=== PATIENT | male | born 1980 | race Caucasian/White ===

== ENCOUNTER 2022-09-05 20:18 | Emergency (ER) | payer OTHER, SELFPAY ==
--- NOTE | ~2022-09-05 | XR_ITS ---
EXAMINATION: XR chest 1V portable INDICATION: Shortness of breath and chest pain TECHNIQUE: Portable AP chest at 2046 hours COMPARISON: None available FINDINGS: The lungs are free of acute opacities. No pleural effusion or pneumothorax. The cardiomedia stinal silhouette is normal. The visualized bones and soft tissues are unremarkable. IMPRESSION: 1. No acute cardiopulmonary abnormality. Reviewed, dictated and finalized at location F.
[2022-09-05 20:25] VITALS: BP 109/83; PULSE 105; RESP 16; TEMP 36.9; O2SAT 100
--- NOTE | 2022-09-05 20:25 | ECG_ITS ---
Measurements Intervals [place] Rate: 97 P: 46 [place]: 191 QRS: -6 QRSD: 77 T: 44 QT: 323 QTc: 411 Interpretive Statements SINUS RHYTHM POSSIBLE LEFT ATRIAL ENLARGEMENT [-0.1mV P-WAVE IN V1/V2] INFERIOR MYOCARDIAL INFARCTION , PROBABLY OLD [40+ ms Q WAVE AND/OR ST/T ABNORMALITY IN II/aVF] POSSIBLE ANTERIOR MYOCARDIAL INFARCTION, OLD ABNORMAL ECG COMPARED TO ECG 09/05/2022 20:25:07 SINUS RHYTHM NOW PRESENT Electronically Signed On 09-06-2022 13:31:06 CDT by Vladislav Mobley M.D.
--- NOTE | 2022-09-05 20:38 | ED.GENADULT ---
HPI - General Adult General Chief complaint: Unspecified Stated complaint: jaw tightness, numbness, racing heart Time Seen by Provider: 09/05/22 20:24 History of Present Illness HPI narrative: A 41-year-old male with a significant coronary artery disease presenting with chest pain. Patient was playing softball when at 6:45 a.m. he developed severe chest pressure that radiated to his jaw and left arm. He took 2 nitro which is improved his pain to a 1. He has had pain like this before when he has had a heart attack. No exacerbating factors. Patient is diaphoretic but has not had no vomiting. He says it is not associated with exertion. Patient denies shortness of breath or lower extremity edema. Patient's prime minister is at [place]. He had a stress test 2 weeks ago which was negative. Related Data Allergies Allergy/AdvReac Type Severity Reaction Status Date / Time No Known Allergies Allergy Verified 07/28/12 16:35 [facility] Past Medical History Medical History CAD (coronary artery disease) Diabetes Dyslipidemia Myocardial infarct, old Exam Narrative: APPEARANCE: Looks uncomfortable. Head: atraumatic. EYES: EOMI, NOSE: Atraumatic NECK: Trachea midline RESPIRATORY: No increased rate of breathing clear to auscultation CARDIOVASCULAR: tachycardic, no peripheral edema ABDOMINAL: Non-distended MUSCULOSKELETAl: No obvious deformities NEURO: Alert. Moving 4/4 extremities SKIN:: Warm, dry. Normal color PSYCHIATRIC: Normal affect Course Vital Signs Vital signs: Vital Signs Temperature 98.4 F 09/05/22 20:25 Pulse Rate 105 H 09/05/22 20:25 Respiratory Rate 16 09/05/22 20:25 Blood Pressure 109/83 09/05/22 20:25 Pulse Oximetry 100 09/05/22 20:25 Oxygen Delivery Room Air 09/05/22 20:25 Temperature 98.4 F 09/05/22 20:25 Pulse Rate 85 09/05/22 23:29 Respiratory Rate 12 09/05/22 23:29 Blood Pressure 98/70 L 09/05/22 23:29 Pulse Oximetry 99 09/05/22 23:29 Oxygen Delivery Room Air 09/05/22 20:25 Medical Decision Making [facility] Narrative Medical decision making narrative: -Presentation: 41-year-old male with significant cardiac history presenting to ED with chest pain. 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 -Hx from independent Sources: at bedside -Discussion of Management/Consultants: Ingacio-hospitalist -Independent interpretation of studies: CBC within normal limits. Metabolic panel unremarkable. Troponins negative x2. BNP 36. viral swabs negative. Chest x-ray unremarkable. Independent EKG interpretation: Rhythm [sinus], Rate [107], [place] -[normal], TX -[normal], QRS [narrow], QTC [normal], T waves -[negative for concerning inversions], ST Segments - [Negative for concerning elevations] Final interpretations: [Normal Sinus Rhythm] Dx tests considered but not ordered: None -Procedures: none -Interventions: aspirin 325 mg, nitro -Shared decision making / Disposition: Upon re-evaluation patient is resting comfortably with complete resolution of his chest pain. He does have a history of coronary artery disease and his presentation was very concerning. However his pain is completely resolved. His troponins are negative he has no EKG changes. I actually recommended admission to this hospital, however his prime minister are not here. He is comfortable calling them in the morning and arranging an appointment. He believes he can get quick follow-up. Patient will be discharged with return precautions. -RX Vital Signs Vital Signs: Vital Signs Te
[2022-09-05] MEDS: NITROGLYCERIN SL 0.4 MG TABLET SUBLINGUAL (20:41)
[2022-09-05] MEDS: ASPIRIN 81 MG CHEWABLE TABLET 324 MG PO (20:42)
[2022-09-05 20:49] LABS: Basophils Absolute Auto 0.1 K/mm3 (0.0-0.1); Basophils Percent Auto 0.5 % (0.2-1.2); Eosinophils Absolute Auto 0.1 K/mm3 (0-0.3); Eosinophils Percent Auto 0.6 % (0-4.4); Hemoglobin 16.8 g/dL (14.0-18.0); Immature Granulocyte Absolute 0.03 K/mm3 (0.00-0.031); Immature Granulocyte Percent A 0.3 % (0-0.5); Lymphocytes Absolute Auto 2.25 K/mm3 (0.9-3.2); Lymphocytes Percent Auto 20.9 % (18.3-44.2); Mean Corpuscular HGB Conc 34.3 g/dl (32-36); Mean Corpuscular Hemoglobin 30.9 pg (26-34); Mean Corpuscular Volume 90.1 fl (80-100); Mean Platelet Volume 11.9 fl (7.4-10.4); Monocytes Absolute Auto 0.9 K/mm3 (0.1-0.6); Monocytes Percent Auto 8.2 % (2.6-8.5); Neutrophils Absolute Auto 7.5 K/mm3 (1.3-6.7); Neutrophils Percent Auto 69.5 % (45.5-73.1); Platelet Count Result 222 k/mm3 (150-375); Red Blood Count 5.44 M/mm3 (4.6-6.20); Red Cell Distribution Width 12.9 % (11.5-14.5); White Blood Count 10.8 K/mm3 (4.5-10.0)
[2022-09-05 20:51] LABS: Glucose Point of Care 303 mg/dl (65-105)
[2022-09-05 21:00] LABS: Prothrombin Time 13.7 Seconds (11.1-14.7)
[2022-09-05 21:01] LABS: Partial Thromboplastin Time 28.3 SECONDS (22.3-36.8)
--- NOTE | 2022-09-05 21:05 | ECG_ITS ---
Measurements Intervals [place] Rate: 107 P: 33 [place]: 152 QRS: -15 QRSD: 86 T: 47 QT: 329 QTc: 439 Interpretive Statements SINUS TACHYCARDIA POSSIBLE LEFT ATRIAL ENLARGEMENT [-0.1mV P-WAVE IN V1/V2] POSSIBLE ANTERIOR MYOCARDIAL INFARCTION , OF INDETERMINATE AGE [30 ms Q WAVE IN V3/V4, OR R < 0.2 mV IN V4] ABNORMAL ECG NO PREVIOUS ECG AVAILABLE FOR COMPARISON Electronically Signed On 09-06-2022 13:30:42 CDT by Vladislav Mobley M.D.
[2022-09-05 21:07] LABS: Alanine Aminotransferase 37 U/L (6-50); Alkaline Phosphatase 68 U/L (38-126); Anion Gap 15 mmol/L (8-16); Aspartate Amino Transferase 30 U/L (17-59); Bilirubin,Total 0.7 mg/dL (0.2-1.3); Blood Urea Nitrogen 30 mg/dL (9-20); Calcium 9.3 mg/dL (8.4-10.2); Carbon Dioxide 22 mmol/L (22-30); Chloride 99 mmol/L (98-107); Estimated CRCL calculation 100 ml/min; Estimated Glomerular Filt Rate > 60; Glucose 301 mg/dL (65-110); Lipase 125 U/L (23-300); Magnesium 1.9 mg/dL (1.6-2.3); Potassium 3.8 mmol/L (3.4-5.0); Sodium 136 mmol/L (137-145)
[2022-09-05 21:18] VITALS: BP 98/65; PULSE 95; RESP 17; O2SAT 98
[2022-09-05 21:25] LABS: Influenza A QL RT-PCR Negative (Negative); Influenza B QL RT-PCR Negative (Negative); RSV RNA, RT-PCR Negative (Negative); SARS-CoV-2 RNA PCR Negative (Negative)
[2022-09-05 21:26] LABS: NT Pro B Type Natriuretic Pept 36 pg/mL (19.9-100); Troponin I < 0.012 ng/mL (0.000-0.034)
[2022-09-05 21:56] VITALS: BP 95/59; PULSE 88; RESP 21; O2SAT 97
[2022-09-05 22:53] VITALS: BP 109/73
[2022-09-05 23:29] VITALS: BP 98/70; PULSE 85; RESP 12; O2SAT 99
[2022-09-05 23:51] LABS: Troponin I < 0.012 ng/mL (0.000-0.034)
[2022-09-06 00:45] VITALS: BP 100/69; PULSE 83; RESP 14; O2SAT 98
== END 2022-09-06 00:47 | disposition home or self-care (01) ==
PROVIDERS: Emergency Provider Emergency Medicine
DX: I25.10 Atherosclerotic heart disease of native coronary artery without angina pectoris (principal); Z20.822 Contact with and (suspected) exposure to COVID-19; E11.9 Type 2 diabetes mellitus without complications; E78.5 Hyperlipidemia, unspecified; I25.2 Old myocardial infarction; Z95.5 Presence of coronary angioplasty implant and graft; R94.31 Abnormal electrocardiogram [ECG] [EKG]; R00.0 Tachycardia, unspecified
CPT/HCPCS: 36415; 71045; 80053; 82948; 83690; 83735; 83880; 84484; 85025; 85610; 85730; 87637; 93005; 99284; A9270

== ENCOUNTER 2023-11-10 15:58 | Emergency (ER) | payer OTHER, SELFPAY ==
[2023-11-10 16:04] VITALS: BP 150/89; PULSE 82; RESP 20; TEMP 36.2; O2SAT 100
--- NOTE | 2023-11-10 19:40 | PC.NURSE ---
Pt called out twice at 1919. No answer
== END 2023-11-10 20:22 | disposition left against medical advice (07) ==
DX: M54.50 Low back pain, unspecified (principal)
CPT/HCPCS: 99199

== ENCOUNTER 2023-11-11 09:12 | Emergency (ER) | payer OTHER, SELFPAY ==
--- NOTE | ~2023-11-11 | CT_ITS ---
EXAMINATION: CTA chest abdomen pelvis DATE: 11/11/2023 11:06 INDICATION: Back pain radiating to the groin. Constipation. TECHNIQUE: Computed tomographic angiography (CTA) of the chest, abdomen, and pelvis was performed wit h 100 mL Omnipaque-350 intravenous contrast. Automated exposure control and iterative reconstruction technique were employed. The dose-length product was 1610.42 mGy-cm. Maximum intensity projection 3D- reconstructions of the aorta and other arteries were constructed by the technologist on a separate wo rkstation. COMPARISON: None. FINDINGS: CHEST CTA: The lungs demonstrate minimal atelectasis. No pleural effusion. The heart size is normal. There is a trace pericardial effusion. There are coronary artery calcifications. Thoracic aorta is normal. There is mild thoracic spondylosis. ABDOMEN AND PELVIS CTA: The liver, gallbladder, spleen, pancreas, adrenal glands, and kidneys are normal. There are no dilate d loops of bowel. The appendix is normal. There are no pathologically enlarged lymph nodes. There is no free intraperitoneal fluid. The aorta is normal. There is no significant stenosis of celiac axis, superior mesenteric artery, the renal arteries, or inferior mesenteric artery. There is mild lumbar s pondylosis.. IMPRESSION: 1. Normal aorta. Reviewed, dictated and finalized at location E. IMPRESSION: 1. Normal aorta.
--- NOTE | ~2023-11-11 | XR_ITS ---
EXAMINATION: XR chest 1V DATE: 11/11/2023 10:49 INDICATION: Mid to low back pain rating to the groin. TECHNIQUE: A single frontal view of the chest was obtained. COMPARISON: Chest single view 09/05/2022 FINDINGS: There is no pneumonia, pleural effusion, or pneumothorax. The heart size is normal. IMPRESSION: 1. No acute cardiopulmonary disease. Reviewed, dictated and finalized at location E.
[2023-11-11 09:47] VITALS: BP 90/51; PULSE 88; RESP 18; TEMP 36.9; O2SAT 100
--- NOTE | 2023-11-11 10:31 | ECG_ITS ---
Test Date: 2023-11-11 11:34:00 Measurements Intervals [place] Rate: 86 P: 50 [place]: 170 QRS: 15 QRSD: 91 T: 49 QT: 349 QTc: 419 Interpretive Statements SINUS RHYTHM LOW QRS VOLTAGE IN EXTREMITY LEADS [QRS DEFLECTION < 0.5 mV IN LIMB LEADS] No previous ECG available for comparison Electronically Signed On 11-11-2023 13:51:09 CDT by Jeanmarie Cole M.D.
--- NOTE | 2023-11-11 10:34 | ED.BACK ---
HPI - Back Pain/Injury General Chief Complaint: Back Pain/Injury Stated Complaint: lower back pain goes into groin, legs/feet Time Seen by Provider: 11/11/23 10:01 History of Present Illness HPI Narrative: This is a 42-year-old male with a past medical history significant for coronary artery disease status post multiple stents. Today he presents to the ED for evaluation of sudden onset back pain radiating towards his left side and left groin. 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 Has never had anything like this happen to him in the past. Pain has been persistent and worsening since Sunday last week when this started. Denies any chest discomfort difficulty in breathing. No nausea, vomiting, headache, vision changes. No weakness, fatigue. No neuropathy. No saddle anesthesias. He states he has had decreased ability to use the restroom with some constipation but denies any urinary issues. Able to ambulate denies any footdrop, weakness or any other neurological complaints at this time. No history of aortic dissection in this health for his family members, no history of other trauma. Related Data Allergies Allergy/AdvReac Type Severity Reaction Status Date / Time No Known Allergies Allergy Verified 11/11/23 10:08 Review of Systems Review of Systems: As reviewed above in the [facility] Past Medical History Medical History CAD (coronary artery disease) Diabetes Dyslipidemia Myocardial infarct, old Exam Narrative: GENERAL: [Well-appearing, well-nourished, and in no acute distress.] HEAD: [Normocephalic, atraumatic.] EYES: [PERRLA and EOMI.] ENT: Nares clear, no rhinorrhea or epistaxis. Mucous membranes moist. NECK: Supple. CHEST: [Clear to auscultation. No respiratory distress.] HEART: [Regular rate and rhythm]. No murmur heard. [Normal peripheral pulses.] ABDOMEN: [Soft, nondistended], tenderness in the midepigastrium without any pulsatile masses, [No rigidity or guarding]. Testicular exam revealed symmetric testicles without any pain, no tenderness in the inguinal region, no hernia masses felt. EXTREMITIES: Normal range of motion. [No edema.] Focal back pain in the lumbar central paraspinal area SKIN: Warm, dry, no rash. NEURO: [No focal deficits]. Alert and oriented [x3.] No saddle anesthesias. PSYCH: [Normal mood and affect.] Course Vital Signs Vital signs: Vital Signs Temperature 36.9 C 11/11/23 09:47 Pulse Rate 88 11/11/23 09:47 Respiratory Rate 18 11/11/23 09:47 Blood Pressure 90/51 L 11/11/23 09:47 Pulse Oximetry 100 11/11/23 09:47 Oxygen Delivery Room Air 11/11/23 09:47 Temperature 36.9 C 11/11/23 09:47 Pulse Rate 93 11/11/23 13:12 Respiratory Rate 16 11/11/23 13:12 Blood Pressure 118/92 H 11/11/23 13:12 Pulse Oximetry 99 11/11/23 13:12 Oxygen Delivery Room Air 11/11/23 09:47 MDM - Back Pain/Injury MDM Narrative Medical decision making narrative: This is a 42-year-old male with significant past medical history including coronary artery disease with stents, dyslipidemia. He presents today with sudden onset back pain, abdominal pain and radiating pain to his left groin. He was not doing anything particularly strenuous and is at work when he notices sudden-onset pain that has been worsening since Sunday. He has tried Tylenol, laxatives, [id number] treatments without any relief of his symptoms. His examination is concerning with a mid epigastrium tenderness that does feel connected to his back according to himself. He has no neuro deficits and is able to ambulate. He has some paraspinal muscle tenderness is back. No inguinal masses, no hernias palpated, no overlying skin changes
[2023-11-11 11:03] LABS: Estimated CRCL calculation 118 ml/min; Estimated Glomerular Filt Rate > 60
[2023-11-11] MEDS: MORPHINE SULFATE (*CRX) 4 MG/ML INJ 8 MG IV PUSH (11:10)
[2023-11-11] MEDS: LACTATED RINGERS 1,000 ML 999 ML IV CONT (11:11)
[2023-11-11] MEDS: ONDANSETRON INJ 4 MG/2 ML VIAL IV PUSH (11:11)
[2023-11-11 11:15] VITALS: BP 109/82; PULSE 90; RESP 18; O2SAT 100
[2023-11-11 11:21] LABS: Basophils Percent Auto 0.5 % (0.2-1.2); Eosinophils Absolute Auto 0.1 K/mm3 (0-0.3); Eosinophils Percent Auto 0.8 % (0-4.4); Hematocrit 45.2 % (42.0-52.0); Hemoglobin 15.7 g/dL (14.0-18.0); Immature Granulocyte Absolute 0.02 K/mm3 (0.00-0.031); Immature Granulocyte Percent A 0.2 % (0-0.5); Lymphocytes Absolute Auto 1.32 K/mm3 (0.9-3.2); Lymphocytes Percent Auto 15.7 % (18.3-44.2); Mean Corpuscular HGB Conc 34.7 g/dl (32-36); Mean Corpuscular Hemoglobin 32.1 pg (26-34); Mean Corpuscular Volume 92.4 fl (80-100); Mean Platelet Volume 12.4 fl (7.4-10.4); Monocytes Absolute Auto 0.6 K/mm3 (0.1-0.6); Monocytes Percent Auto 6.8 % (2.6-8.5); Neutrophils Absolute Auto 6.4 K/mm3 (1.3-6.7); Platelet Count Result 169 k/mm3 (150-375); Red Blood Count 4.89 M/mm3 (4.6-6.20); Red Cell Distribution Width 12.6 % (11.5-14.5); White Blood Count 8.4 K/mm3 (4.5-10.0)
[2023-11-11 11:23] LABS: Add Urine Microscopic? NO; Appearance Urine Clear (Clear); Bilirubin Urine Negative (Negative); Blood Urine Negative (Negative); Color Urine Yellow (Yellow); Glucose Urine UA 3+ mg/dL (Negative); Ketones Urine 2+ mg/dL (Negative); Leukocyte Esterase Ur Negative LEU/UL (Negative); Nitrate Urine Negative (Negative); Protein Urine Negative (Negative); Specific Grav Ur 1.036 (1.001-1.035); Urobilinogen Urine 0.2 mg/dL (<2.0)
[2023-11-11 11:32] LABS: Partial Thromboplastin Time 28.1 Seconds (22.3-36.8)
[2023-11-11 11:33] LABS: INR 1.1
[2023-11-11 11:35] LABS: Alanine Aminotransferase 21 U/L (6-50); Albumin Level 4.1 g/dL (3.5-5.1); Alkaline Phosphatase 73 U/L (38-126); Anion Gap 13 mmol/L (4-12); Aspartate Amino Transferase 21 U/L (17-59); Bilirubin,Total 0.7 mg/dL (0.2-1.3); Blood Urea Nitrogen 26 mg/dL (9-20); Calcium 8.7 mg/dL (8.4-10.2); Carbon Dioxide 24 mmol/L (22-30); Chloride 97 mmol/L (98-107); Estimated CRCL calculation 171 ml/min; Estimated Glomerular Filt Rate > 60; Glucose 295 mg/dL (65-110); Lipase 96 U/L (23-300); Potassium 4.3 mmol/L (3.4-5.0); Sodium 134 mmol/L (137-145)
[2023-11-11 11:36] LABS: D Dimer < 0.27 ug/mL (<0.48)
[2023-11-11 11:46] LABS: Troponin I < 0.012 ng/mL (0.000-0.034)
[2023-11-11 13:12] VITALS: BP 118/92; PULSE 93; RESP 16; O2SAT 99
[2023-11-11] MEDS: LIDOCAINE 5% PATCH 1 PATCH TRANSDERM (13:50)
[2023-11-11] MEDS: methocarbamoL 750 MG TABLET PO (13:51)
[2023-11-11] MEDS: dexAMETHasone SOD PHOS INJ 10 MG/ML 1 ML VIAL IV PUSH (13:51)
[2023-11-11 14:05] VITALS: BP 124/80; PULSE 89; RESP 18; TEMP 37.1; O2SAT 98
== END 2023-11-11 14:07 | disposition home or self-care (01) ==
PROVIDERS: Emergency Provider Student in an Organized Health Care Education/Training Program
DX: S39.012A Strain of muscle, fascia and tendon of lower back, initial encounter (principal); M51.26 Other intervertebral disc displacement, lumbar region; E86.0 Dehydration; I25.10 Atherosclerotic heart disease of native coronary artery without angina pectoris; I25.2 Old myocardial infarction; E11.9 Type 2 diabetes mellitus without complications; E78.5 Hyperlipidemia, unspecified; Z95.5 Presence of coronary angioplasty implant and graft; X58.XXXA Exposure to other specified factors, initial encounter
CPT/HCPCS: 36415; 71045; 71275; 74174; 80053; 81003; 83690; 84484; 85025; 85380; 85610; 85730; 93005; 96361; 96374; 96375; 99284; A9270; J1100; J2270; J2405; J7120; Q9967

== ENCOUNTER 2024-08-04 08:52 | Emergency (ER) | payer OTHER, SELFPAY ==
[2024-08-04] VITALS (15 sets, daily range): BP systolic 112–142; BP diastolic 79–94; PULSE 79–104; RESP 9–18; TEMP 36.7; O2SAT 96–100
--- NOTE | ~2024-08-04 | XR_ITS ---
Clinical Indication: Chest pain PA and lateral views of the chest: Comparison: 11/11/2023 Findings: The lungs are clear, without evidence of focal consolidation or pleural effusion. Cardiome diastinal silhouette is within normal limits. Bones and soft tissues are unremarkable. Impression: Normal chest. Reviewed, dictated and finalized at location . Impression: Normal chest.
--- NOTE | 2024-08-04 08:53 | ECG_ITS ---
Test Date: 2024-08-04 08:59:50 Measurements Intervals [place] Rate: 84 P: 33 [place]: 171 QRS: 0 QRSD: 82 T: 37 QT: 326 QTc: 385 Interpretive Statements SINUS RHYTHM LOW-VOLTAGE OTHERWISE NORMAL ELECTROCARDIOGRAM Compared to ECG 11/11/2023 11:34:00 No significant changes Electronically Signed On 08-04-2024 15:39:21 CDT by Conor Barbour M.D.
[2024-08-04 09:05] LABS: Glucose Point of Care 269 mg/dl (65-105)
[2024-08-04] MEDS: ASPIRIN 81 MG CHEWABLE TABLET 324 MG PO (09:13)
--- OUTSIDE RECORDS SUMMARY | 2024-08-04 09:17 | XMS_ITS | Encounter Summary ---
Author Organization [facility] - [facility] Address [address] [place] [id number] Care Team Providers Care Writing Manager Name Role Phone Liss Randle STRATEGIC PARTNER DEVELOPMENT MANAGER Primary Care Provider + Encounter Details Date Type Department Care Team (Late st Contact Info) Description 05/05/2024 [place] Message Enc [facility] Family [facility] - [place] [address] [place] [address] [facility] Provider test results Social History Tobacco Use Types Packs/Day Years Used Date Smoking Tobacco: Never Passive Smoke Exposure: Never Smokeless Tobacco: Never Alcohol Use Standard Drinks/Week Comments No 0 (1 standard drink = 0.6 oz pur e alcohol) AUDIT-C Answer Date Recorded Frequency of Alcohol Consumption Never 07/25/2018 Average Number of Drinks Not on file 019 Frequency of Binge Drinking Not on file 07/02 PHQ-2 Answer Date Recorded Patient Health Questionnaire-2 Score 0 04/11/2024 Sex and Gender Information Value Date Recorded Sex Assigned at Not on file Legal Sex Male 7:35 PM CDT Gender Identity Not on file Sexual Orientation Not on file documented as of this encounter Plan of Treatment Not on file documented as of this encounter Visit Diagnoses Not on filedocumented in this encounter Additional Health Concerns Assessment Noted Time PHQ-9 Depression Total Score: 1 04/11/19 25 9:38 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
--- OUTSIDE RECORDS SUMMARY | 2024-08-04 09:17 | XMS_ITS | CONTINUITY OF CARE DOCUMENT ---
Author Name sheron fabydevante Address Unknown Organization [facility] Address [address] [place] [address] Phone [phone] Care Team Providers Care Termite Treater Helper Name Role Phone Subha VIVEROS, Patrick Moran Unavailable [phone] ZA HAAS APN Unavailable [phone] WALDO CARLSON ZA Unavailable [phone] PROBLEMS Condition Status Date Provider Notes JOSIANE active Patrick Mascorro MD SLEEP APNEA active Patrick Mascorro MD Family History of Hypertension: active Natividad Mascorro MD Family History of Hypertension: active Natividad Mascorro MD Cardiovascular screening active Patrick valero MD DM - type 2 active Patrick Mascorro MD Dyslipidemia mixed active Patrick Mascorro MD AMI anterior wall active Patrick Garza Hypercholesterolemia active Patrick de anda MD HTN essential active Patrick Mascorro MD Chest pain atypical active Patrick Mascorro MD Palpitations active Patrick Mascorro MD ENCOUNTERS Date Type Provider Location Encounter Diag nosis - In-person encounter Office Visit Patrick Mascorro MD [place] [facility] - In-person encounter Office Visit Patrick Mascorro MD [facility] - In-person encounter Office Visit Patrick Mascorro MD [facility] - In-person encounter Office Visit Patrick Mascorro MD [facility] - In-person encounter Office Visit Patrick Mascorro MD [facility] - In-person encounter Office Visit Patrick Mascorro MD [facility] - In-person encounter Office Visit Patrick Mascorro MD [facility] - In-person encounter Office Visit Patrick Mascorro MD [facility] Chest pain atypicalPalpitations - In-person encounter Office Visit Patrick Mascorro MD [place] [facility] Family History of Hypertension:Family History of Hypertension:Cardiovascular screeningDM - type 2Dyslipidemia mixedAMI anterior wallHypercholesterolemiaHTN essential VITAL SIGNS Date Observation Value Provider Body Mass Index (Ratio) 33.90 kg/m2 Natividad Mascorro MD blood pressure, diastolic 84 mm[Hg] Aziza Ramirez blood pressure, systolic 121 mm[Hg] Lily Ramirez oxygen saturation, oximetry 98 % Maren Ramirez pulse rate 73 /min Maren Ramirez respiratory rate E&M 12 /min Maren Ramirez weight E&M 250 [lb_av] Maren Ramirez height E&M 72 [in_i] Maren Ramirez blood pressure, cuff size regular Aziza Ramirez Body Mass Index (Ratio) 36.89 kg/m2 Natividad Mascorro MD blood pressure, cuff size large Ke rri Rima blood pressure, diastolic 80 mm[Hg] Ke rri Rima blood pressure, systolic 150 mm[Hg] Caesar Abarca respiratory rate E&M 12 /min Brittany cano oxygen saturation, oximetry 99 % Brittany Gibbonser pulse rate 82 /min Brittany Adams lder weight E&M 272 [lb_av] Brittany Adams lder height E&M 72 [in_i] Brittany Adams er Body Mass Index (Ratio) 362.08 kg/m2 Natividad Mascorro MD blood pressure, diastolic 83 mm[Hg] Kim arriazaLogmendoza blood pressure, systolic 123 mm[Hg] Sulma Wolffmendoza weight E&M 2670 [lb_av] Ashlee Garcia pulse rate 82 /min Ashlee Garcia respiratory rate E&M 18 /min Ashlee Garcia oxygen saturation, oximetry 97 % Ashlee Garcia blood pressure, diastolic 83 mm[Hg] Martell Garcia blood pressure, systolic 123 mm[Hg] She samra Garcia blood pressure, cuff size regular naman Garcia height E&M 72 [in_i] Ashlee Garcia weight E&M 251 [lb_av] Zoie Monroy in Body Mass Index (Ratio) 34.15 kg/m2 Natividad Mascorro MD blood pressure, diastolic -1 mm[Hg] Kim arriazaLogmendoza blood pressure, systolic 116 mm[Hg] Sulma Wolffogmendoza blood pressure, diastolic 79 mm[Hg] St francia Hoffmann blood pressure, systolic 116 mm[Hg] Alcon Hoffmann oxygen saturation, oximetry 99 % Mirna Hoffmann pulse rate 84 /min Mirna Hoffmann weight E&M 251.8 [lb_av] Mirna Hoffmann respiratory rate E&M 18 /min Mirna zuleta height E&M 72 [in_i] Mirna Hoffmann Body Mass Index (Ratio) 34.31 kg/m2 Natividad Mascorro MD blood pressure, diastolic 75 mm[Hg] Li nkLogic blood pressure, systolic 127 mm[Hg] Sulma kLogic blood pressure, diastolic 75 mm[Hg] Ca therine Kenan blood pressure, systolic 127 mm[Hg] Cat herine Kenan oxygen saturation, oximetry 98 % Isabel [place] respiratory rate E&M 16 /min Catheri ne [place] pulse rate 80 /min Isabel Kenan weight E&M 253 [lb_av] Isabel Kenan blood pressure, cuff size regular Ca therine Kenan height E&M 72 [in_i] Isabel [place] weight E&M 151 [lb_av] Aniceto gross Body Mass Index (Ratio) 35.80 kg/m2 Natividad Mascorro MD blood pressure, cuff size large Ke rri Gruenenfeldclementina blood pressure, diastolic 70 mm[Hg] Ke rri Gruenenfelder blood pressure, systolic 120 mm[Hg] Caesar ri Rima oxygen saturation, oximetry 98 % Brittany Abarca respiratory rate E&M 14 /min Brittany cano pulse rate 76 /min Brittany Angie lder weight E&M 264 [lb_av] Brittany Angie lder height E&M 72 [in_i] Brittany Gruenenfe lder Body Mass Index (Ratio) 35.12 kg/m2 Stephanie Arzate blood pressure, cuff size large Janie terrazas Falk blood pressure, diastolic 76 mm[Hg] Janie terrazas Falk blood pressure, systolic 130 mm[Hg] Ananda rosado Falk oxygen saturation, oximetry 99 % Autumn Dileep respiratory rate E&M 96 /min Loni Falk pulse rate 96 /min Autumn garza weight E&M 259 [lb_av] Autumn garza height E&M 72 [in_i] Autumn garza Body Mass Index (Ratio) 34.99 kg/m2 Natividad Mascorro MD weight E&M 258 [lb_av] Mary Grant castillo respiratory rate E&M 16 /min Mary Ascencio oxygen saturation, oximetry 97 % Maryneetu Ascencio pulse rate 97 /min Mary Grant castillo blood pressure, cuff size regular Cy tyshawn Sonu blood pressure, diastolic 70 mm[Hg] Cy tyshawn Sonu blood pressure, systolic 138 mm[Hg] Antonieta nydia Sonu height E&M 72 [in_i] Mary Grant castillo Body Mass Index (Ratio) 35.80 kg/m2 Natividad Mascorro MD pulse rate 83 /min Jessicalauren Serra blood pressure, cuff size regular Kr isty Ponce blood pressure, diastolic 80 mm[Hg] Kr isty Ponce blood pressure, systolic 144 mm[Hg] Kri sty Ponce oxygen saturation, oximetry 98 % Jessica Sullivan respiratory rate E&M 18 /min Jessica Sullivan blood pressure, resting Yes Osmel ty Sullivan height E&M 72 [in_i] Jessica Hansenby weight E&M 264 [lb_av] Jessica Hansenby ALLERGIES No Known Drug Allergies HISTORY OF MEDICATION USE Medication Status Instructions Dates Provider Indications Com ments nitroglycerin 0.4 mg tablet, sublingual active PLACE 1 TABLET UNDER THE TONGUE FOR CHEST PAIN. REPEAT EVERY 5 MINS IF STILL HAVING CHEST PAIN. MAX 3 TABLETS PER EPISODE. IF NO RELIEF GO TO ER. Patrick Mascorro MD atorvastatin 40 mg tablet active Take 1 tablet by mouth once a day Patrick Mascorro MD clopidogrel 75 mg tablet active Take 1 tablet by mouth once a day Patrick Mascorro MD isosorbide mononitrate 30 mg tablet extended release 24 hr active Take 1 tablet by mouth once a day TAKE 1 TABLET BY MOUTH EVERY DAY Patrick Mascorro MD lisinopril 10 mg tablet active Take 1 tablet by mouth once a day Patrick Mascorro MD fluoxetine 20 mg capsule active Take 1 capsule by mouth once daily Krishna Ibarra NP Farxiga 10 mg tablet active Take 1 tablet by mouth once a day Patrick Mascorro MD Mounjaro 2.5 mg/0.5 mL pen injector active Inject 1 pen injector subcutaneously once a week for 4 weeks, if tolerated will increase dosage. Brittany Abarca nitroglycerin 0.4 mg tablet, sublingual completed PLACE 1 TABLET UNDER TONGUE FOR CHEST PAIN NEEDED. MAY REPEAT EVERY 5 MINUTES IF STILL HAVING CHEST PAIN- TO MAX OF 3 TABLETS PER EPISODE.IF NO RELIEF AFTER 3RD DOSE, GO TO ER - Krishna Ibarra NP lisinopril 10 mg tablet completed Take 1 tablet by mouth once a day - Krishna Ibarra NP isosorbide mononitrate 30 mg tablet extended release 24 hr completed TAKE 1 TABLET BY MOUTH EVERY DAY - Brittany Abarca isosorbide mononitrate 30 mg tablet extended release 24 hr completed TAKE 1 TABLET BY MOUTH DAILY - Patrick Mascorro MD nitroglycerin 0.4 mg tablet, sublingual completed PLACE 1 TABLET UNDER TONGUE FOR CHEST PAIN NEEDED. MAY REPEAT EVERY 5 MINUTES IF STILL HAVING CHEST PAIN- TO MAX OF 3 TABLETS PER EPISODE.IF NO RELIEF AFTER 3RD DOSE, GO TO ER - Christy Lockhart nitroglycerin 0.4 mg tablet, sublingual completed 1 tablet under tongue as directed as needed 1 tablet under tongue for chest pain. May repeat every 5 minutes if still having chest pain- to max of 3 tablets per episode.If no relief after 3rd dose, go to ER - Patrick Mascorro MD Availinke 14 Day Sensor kit active 1 UNITS BY DOES NOT APPLY ROUTE EVERY 14 (FOURTEEN) DAYS. Jessica Serra Rybelsus 7 mg tablet completed TAKE 1 TABLET BY MOUTH EVERY DAY - Krishna Ibarra NP Xigduo XR 10-1,000 mg tablet, IR - ER, biphasic 24hr completed TAKE 1 TABLET BY MOUTH EVERY DAY - Krishna Ibarra NP fluoxetine 20 mg capsule completed TAKE 1 CAPSULE BY MOUTH EVERY DAY - Krishna Ibarra NP carvedilol 3.125 mg tablet active Take 1 tablet by mouth twice a day Patrick Mascorro MD pioglitazone 30 mg tablet completed TAKE 1 TABLET BY MOUTH EVERY DAY - Krishna Ibarra NP lisinopril 10 mg tablet completed TAKE 1 TABLET BY MOUTH EVERY DAY - Brittany Abarca clopidogrel 75 mg tablet completed TAKE 1 TABLET BY MOUTH EVERY DAY - Brittany Abarca atorvastatin 40 mg tablet completed TAKE 1 TABLET BY MOUTH EVERY DAY - Brittany Abarca SOCIAL HISTORY Date Observation Value Provider personal history of marijuana use no Patrick Mascorro MD drug use no Patrick de anda MD alcohol use no Patrick de anda MD smoking status Never smoker Patrick crump MD personal history of marijuana use no Krishna Ibarra EARTH SCIENCE PROFESSOR drug use no Krishna Steeleri EARTH SCIENCE PROFESSOR alcohol use no Krishna Steeleri EARTH SCIENCE PROFESSOR smoking status Never smoker Krishna Lemus i EARTH SCIENCE PROFESSOR smoking status Never smoker Ashlee Garcia social history E&M S moking History: Avila nicholson has never smoked. Patrick Mascorro MD social history reviewed E&M revi ewed - no changes required Patrick Mascorro MD smoking status Never smoker Mirna Hoffmann social history E&M S moking History: Avila nicholson has never smoked. Patrick Mascorro MD social history reviewed E&M revi ewed - no changes required Patrick Mascorro MD smoking status Never smoker Isabel alarcon social history E&M S moking History: Avila nicholson has never smoked. Patrick Mascorro MD social history reviewed E&M revi ewed - no changes required Patrick Mascorro MD smoking status Never smoker Brittany chavez social history E&M S moking History: Avila nicholson has never smoked. Patrick Mascorro MD social history reviewed E&M revi ewed - no changes required Patrick Mascorro MD smoking status Never smoker Autumn Siegel and social history E&M S moking History: Avila nicholson has never smoked. Patrick Mascorro MD social history reviewed E&M revi ewed - no changes required Patrick Mascorro MD smoking status Never smoker Mary morton number of grandchildren Patrick Mascorro MD social history E&M S moking History: Avila nicholson has never smoked. Patrick Mascorro MD social history reviewed E&M revi ewed - no changes required Patrick Mascorro MD smoking status Never smoker Jessica Serra FUNCTIONAL STATUS Date Observation Value Provider HRA, CV Assess/Plan, Angina (inactive) Management Plan continue current therapy Sandrahollie Chaudhariorlando FERRARA HRA, CV Assess/Plan, Angina (inactive) Management Plan continue current therapy Patrick Mascorro MD HRA, CV Assess/Plan, Angina (inactive) Management Plan continue current therapy, antianginal therapy Patrick Mascorro MD HRA, CV Assess/Plan, Angina (inactive) Management Plan continue current therapy Patrick Mascorro MD HRA, CV Assess/Plan, Angina (inactive) Management Plan continue current therapy Ptarick Mascorro MD FAMILY HISTORY Family Member Condition Uncle Family History of Hy pertension: Paternal Grandfather Family History of C ongestive Heart Failure: Paternal Grandfather Family History of D iabetes: Maternal Grandmother Family History of H ypertension: Maternal Grandmother Family History of D iabetes: INSURANCE PROVIDERS Payer name Policy type / Coverage type [place] red libertarian [employer] [facility] [id number] Other [id number] ADVANCE DIRECTIVES Name Date DISCUSSED - NO DECISION MADE TREATMENT PLAN Date Name Performer [id number],CS colette and Interpretation 1 . Normal exercise capacity 2 . Normal hemodynamic response to exercise 3 . No diagnostic ST or T changes 4 . No significant arrhythmias 5. There is no evidence for exercise-induced myocardial ischemia routine stress test was supervised and interpreted by Dr. Berg . ...................................................... ............Guera Berg MD August 18, 2022 10:37 AM CONCLUSIONS: 1 . Normal left ventricular systolic function. Normal left ventricular size. Normal left ventricular wall thickness. E/E': 10.0 Left v entricular ejection fraction is measured at 60 %. 2 . Normal right ventricular size. 3 . No significant valvular abnormalities. E lectronically Signed By: Yuliana Mascorro MD, FACC 2 023-05-23 08:33:49 SOLUTION DIRECTOR C C: Patrick Mascorro MD, FACC E lectronically signed by Patrick Mascorro MD on 05/24/2022 at 1:24 PM Patrick Mascorro MD [id number],C, H is updated medication list for this problem includes: Atorvastatin 40 Mg Tablet (Atorvastatin) ..... Take 1 tablet by mouth every day Patrick Mascorro MD [id number],C, P TCA stenting with a cutting balloon atherectomy of the LAD utilizing t he placement of a 3 mm x 38 mm Nain drug-eluting stent. 5 . Intravascular ultrasound of the ramus intermedius followed by PTCA s tenting of the proximal segment with a cutting balloon atherectomy w ith implantation of 3 x 18 Biotron[place] Orsiro drug-eluting stent and d irect stenting of the distal 90% lesion with a 2.5 x 12 [place] d rug-eluting stent. i ncreased coreg to 6.25mg bid December 20, 2022 n o new CP or SOB S ummary and Interpretation 1 . Normal exercise capacity 2 . Normal hemodynamic response to exercise 3 . No diagnostic ST or T changes 4 . No significant arrhythmias 5 . There is no evidence for exercise-induced myocardial ischemia routine stress test was supervised and interpreted by Dr. Berg . ...................................................... ............Guera Berg MD August 18, 2022 10:37 AM Patrick Mascorro MD [id number],C,m oderate JOSIANE on sleep test, needs CPAP in preference to autopap since he had prior CAD/NH Patrick Mascorro MD [id number],C,s table on BP meds H is updated medication list for this problem includes: Carvedilol 3.125 Mg Tablet (Carvedilol) ..... Take 1 tablet by mouth twice a day Lisinopril 10 Mg Tablet (Lisinopril) ..... Take 1 tablet by mouth every day Lisinopril 10 Mg Tablet (Lisinopril) ..... Take 1 tablet by mouth every day Patrick Mascorro MD [id number],C,No new palpit ations. Patrick Mascorro MD [id number],C, H is updated medication list for this problem includes: Atorvastatin 40 Mg Tablet (Atorvastatin) ..... Take 1 tablet by mouth every day Patrick Mascorro MD [id number],C, H AD PALIPS WITH CP TOOK SLNTG W ILL GIV IMDUR AND GET TLE MONOTOR February 18, 2021 f eels well hr better on coreg 6.25mg bid n o new angina will continue wiht medrx Patrick Mascorro MD [id number],C,E cho from 05/25 C ONCLUSIONS: 1 . Normal left ventricular systolic function. Normal left ventricular size. Normal left ventricular wall thickness. E/E': 10.0 Left v entricular ejection fraction is measured at 60 %. 2 . Normal right ventricular size. 3 . No significant valvular abnormalities. Stress test from 08/17/22 T ota Exercise Duration: 10:01 A ctivity Status: Active M ET's: 10.7 F AI Active: 13% E quivalent Age Active: 50 Summary and Interpretation 1 . Normal exercise capacity 2 . Normal hemodynamic response to exercise 3 . No diagnostic ST or T changes 4 . No significant arrhythmias 5 . There is no evidence for exercise-induced myocardial ischemia Patrick Mascorro MD [id number],C,Ac down to 6. 9. Patrick Mascorro MD [id number],C, H is updated medication list for this problem includes: Atorvastatin 40 Mg Tablet (Atorvastatin) ..... Take 1 tablet by mouth every day Patrick Mascorro MD [id number],C, H is updated medication list for this problem includes: Atorvastatin 40 Mg Tablet (Atorvastatin) ..... Take 1 tablet by mouth every day Patrick Mascorro MD [id number],C, B P today: 116/79 P rior BP: 127/75 (07/01/2021) His updated medication list for this problem includes: Carvedilol 3.125 Mg Tablet (Carvedilol) ..... Take 1 tablet by mouth twice a day Lisinopril 10 Mg Tablet (Lisinopril) ..... Take 1 tablet by mouth every day Patrick Mascorro MD [id number],C, H AD PALIPS WITH CP TOOK SLNTG W ILL GIV IMDUR AND GET TLE MONOTOR February 18, 2021 f eels well hr better on coreg 6.25mg bid n o new angina will continue wiht medrx Patrick Mascorro MD [id number],C, P TCA stenting with a cutting balloon atherectomy of the LAD utilizing t he placement of a 3 mm x 38 mm [place] drug-eluting stent. 5 . Intravascular ultrasound of the ramus intermedius followed by PTCA s tenting of the proximal segment with a cutting balloon atherectomy w ith implantation of 3 x 18 Bi[place]ron[place]si[place] drug-eluting stent and d irect stenting of the distal 90% lesion with a 2.5 x 12 [place] d rug-eluting stent. i ncreased coreg to 6.25mg bid Patrick Mascorro MD [id number],C, n o new palps on coreg Patrick Mascorro MD [id number],C, H is updated medication list for this problem includes: Atorvastatin 40 Mg Tablet (Atorvastatin) ..... Take 1 tablet by mouth every day Patrick Mascorro MD [id number],C,s x may be related to hypoglycemia r ecommended to modify diet and consume long acting sugars /carbs at beditme to support blood sugars and contact dibetes doc Patrick Mascorro MD [id number],C, P TCA stenting with a cutting balloon atherectomy of the LAD utilizing t he placement of a 3 mm x 38 mm Nain drug-eluting stent. 5 . Intravascular ultrasound of the ramus intermedius followed by PTCA s tenting of the proximal segment with a cutting balloon atherectomy w ith implantation of 3 x 18 Bi[place] drug-eluting stent and d irect stenting of the distal 90% lesion with a 2.5 x 12 [place] d rug-eluting stent. i ncreased coreg to 6.25mg bid Patrick Mascorro MD [id number],C,no new palps on coreg Patrick Mascorro MD [id number],C, H is updated medication list for this problem includes: Lisinopril 10 Mg Tablet (Lisinopril) ..... Take 1 tablet by mouth every day Carvedilol 3.125 Mg Tablet (Carvedilol) ..... Take 1 tablet by mouth twice a day BP today: 127/75 P rior BP: 120/70 (02/18/2021) Patrick Mascorro MD [id number],C,P TCA stenting with a cutting balloon atherectomy of the LAD utilizing t he placement of a 3 mm x 38 mm Nain drug-eluting stent. 5 . Intravascular ultrasound of the ramus intermedius followed by PTCA s tenting of the proximal segment with a cutting balloon atherectomy w ith implantation of 3 x 18 Bi[place] drug-eluting stent and d irect stenting of the distal 90% lesion with a 2.5 x 12 [place] d rug-eluting stent. i ncreased coreg to 6.25mg bid H is updated medication list for this problem includes: Isosorbide Mononitrate 30 Mg Tablet Extended Release 24 Hr (Isosorbide mononitrate) ..... Take 1 tablet by mouth daily Nitroglycerin 0.4 Mg Tablet, Sublingual (Nitroglycerin) ..... Place 1 tablet under tongue for chest pain as needed. may repeat every 5 minutes if still having chest pain- to max of 3 tablets per episode.if no relief after 3rd dose, go to er Carvedilol 3.125 Mg Tablet (Carvedilol) ..... Take 1 tablet by mouth twice a day Lisinopril 10 Mg Tablet (Lisinopril) ..... Take 1 tablet by mouth every day Clopidogrel 75 Mg Tablet (Clopidogrel) ..... Take 1 tablet by mouth every day Patrick Mascorro MD [id number],C, H is updated medication list for this problem includes: Rybelsus 7 Mg Tablet (Semaglutide) ..... Take 1 tablet by mouth every day Xigduo Xr 10-1,000 Mg Tablet, Ir - Er, Biphasic 24hr (Dapagliflozin-metformin) ..... Take 1 tablet by mouth every day Pioglitazone 30 Mg Tablet (Pioglitazone) ..... Take 1 tablet by mouth every day Lisinopril 10 Mg Tablet (Lisinopril) ..... Take 1 tablet by mouth every day Patrick Mascorro MD [id number],C, H is updated medication list for this problem includes: Atorvastatin 40 Mg Tablet (Atorvastatin) ..... Take 1 tablet by mouth every day Patrick Mascorro MD [id number],C, H is updated medication list for this problem includes: Atorvastatin 40 Mg Tablet (Atorvastatin) ..... Take 1 tablet by mouth every day Patrick Mascorro MD [id number],S, H AD PALIPS WITH CP TOOK SLNTG W ILL GIV IMDUR AND GET TLE MONOTOR February 18, 2021 f eels well hr better on coreg 6.25mg bid n o new angina will continue wiht medrx Patrick Mascorro MD [id number],C,n o palpitations stable on coreg H is updated medication list for this problem includes: Isosorbide Mononitrate 30 Mg Tablet Extended Release 24 Hr (Isosorbide mononitrate) ..... Take 1 tablet by mouth daily Nitroglycerin 0.4 Mg Tablet, Sublingual (Nitroglycerin) ..... Place 1 tablet under tongue for chest pain as needed. may repeat every 5 minutes if still having chest pain- to max of 3 tablets per episode.if no relief after 3rd dose, go to er Carvedilol 3.125 Mg Tablet (Carvedilol) ..... Take 1 tablet by mouth twice a day Lisinopril 10 Mg Tablet (Lisinopril) ..... Take 1 tablet by mouth every day Clopidogrel 75 Mg Tablet (Clopidogrel) ..... Take 1 tablet by mouth every day Patrick Mascorro MD [id number],C, H is updated medication list for this problem includes: Rybelsus 7 Mg Tablet (Semaglutide) ..... Take 1 tablet by mouth every day Xigduo Xr 10-1,000 Mg Tablet, Ir - Er, Biphasic 24hr (Dapagliflozin-metformin) ..... Take 1 tablet by mouth every day Pioglitazone 30 Mg Tablet (Pioglitazone) ..... Take 1 tablet by mouth every day Lisinopril 10 Mg Tablet (Lisinopril) ..... Take 1 tablet by mouth every day Patrick Mascorro MD [id number],C, H is updated medication list for this problem includes: Atorvastatin 40 Mg Tablet (Atorvastatin) ..... Take 1 tablet by mouth every day Patrick Mascorro MD [id number],C,i ncreased coreg to 6.25mg bid H is updated medication list for this problem includes: Isosorbide Mononitrate 30 Mg Tablet Extended Release 24 Hr (Isosorbide mononitrate) ..... Take 1 tablet by mouth daily Nitroglycerin 0.4 Mg Tablet, Sublingual (Nitroglycerin) ..... Place 1 tablet under tongue for chest pain as needed. may repeat every 5 minutes if still having chest pain- to max of 3 tablets per episode.if no relief after 3rd dose, go to er Carvedilol 3.125 Mg Tablet (Carvedilol) ..... Take 1 tablet by mouth twice a day Lisinopril 10 Mg Tablet (Lisinopril) ..... Take 1 tablet by mouth every day Clopidogrel 75 Mg Tablet (Clopidogrel) ..... Take 1 tablet by mouth every day Patrick Mascorro MD [id number],C,m ildly tachycardic will increase coreg to 6..25mg bid B P today: 130/76 P rior BP: 138/70 (01/19/2021) Patrick Mascorro MD [id number],C, H is updated medication list for this problem includes: Atorvastatin 40 Mg Tablet (Atorvastatin) ..... Take 1 tablet by mouth every day Patrick Mascorro MD [id number],C, R /O AFIB WILL NEED TELE MONITOR Patrick Mascorro MD [id number],C, H AD PALIPS WITH CP TOOK SLNTG W ILL GIV IMDUR AND GET TLE MONOTOR Patrick Mascorro MD [id number],C,R/O AFIB WILL NEED TELE MONITOR Patrick Mascorro MD [id number],C,H AD PALIPS WITH CP TOOK SLNTG W ILL GIV IMDUR AND GET TLE MONOTOR Patrick Mascorro MD [id number],C, P TCA stenting with a cutting balloon atherectomy of the LAD utilizing t he placement of a 3 mm x 38 mm Nain drug-eluting stent. Intravascular ultrasound of the ramus intermedius followed by PTCA s tenting of the proximal segment with a cutting balloon atherectomy w ith implantation of 3 x 18 [place] drug-eluting stent and d irect stenting of the distal 90% lesion with a 2.5 x 12 [place] d rug-eluting stent. On DApt H is updated medication list for this problem includes: Carvedilol 3.125 Mg Tablet (Carvedilol) ..... Take 1 tablet by mouth twice a day Lisinopril 10 Mg Tablet (Lisinopril) ..... Take 1 tablet by mouth every day Clopidogrel 75 Mg Tablet (Clopidogrel) ..... Take 1 tablet by mouth every day January 19, 2021 C OMPLIANT WITH ASA PLAVIX Patrick Mascorro MD [id number],C, H is updated medication list for this problem includes: Carvedilol 3.125 Mg Tablet (Carvedilol) ..... Take 1 tablet by mouth twice a day Lisinopril 10 Mg Tablet (Lisinopril) ..... Take 1 tablet by mouth every day Patrick Mascorro MD [id number],C,P TCA stenting with a cutting balloon atherectomy of the LAD utilizing t he placement of a 3 mm x 38 mm [place]ain drug-eluting stent. Intravascular ultrasound of the ramus intermedius followed by PTCA s tenting of the proximal segment with a cutting balloon atherectomy w ith implantation of 3 x 18 [employer] drug-eluting stent and d irect stenting of the distal 90% lesion with a 2.5 x 12 [place] d rug-eluting stent. On DApt H is updated medication list for this problem includes: Carvedilol 3.125 Mg Tablet (Carvedilol) ..... Take 1 tablet by mouth twice a day Lisinopril 10 Mg Tablet (Lisinopril) ..... Take 1 tablet by mouth every day Clopidogrel 75 Mg Tablet (Clopidogrel) ..... Take 1 tablet by mouth every day Patrick Mascorro MD [id number],C, H is updated medication list for this problem includes: Atorvastatin 40 Mg Tablet (Atorvastatin) ..... Take 1 tablet by mouth every day Patrick Mascorro MD Cardiology:no lipid panel recently. Will order. H is updated medication list for this problem includes: Atorvastatin 40 Mg Tablet (Atorvastatin) ..... Take 1 tablet by mouth once a day Patrick Mascorro MD Cardiology: P TCA stenting with a cutting balloon atherectomy of the LAD utilizing t he placement of a 3 mm x 38 mm Nain drug-eluting stent. 5 . Intravascular ultrasound of the ramus intermedius followed by PTCA s tenting of the proximal segment with a cutting balloon atherectomy w ith implantation of 3 x 18 Bi[place]ron[place] Orsi[place] drug-eluting stent and d irect stenting of the distal 90% lesion with a 2.5 x 12 [place] d rug-eluting stent. i ncreased coreg to 6.25mg bid December 20, 2022 n o new CP or SOB S ummary and Interpretation 1 . Normal exercise capacity 2 . Normal hemodynamic response to exercise 3 . No diagnostic ST or T changes 4 . No significant arrhythmias 5 . There is no evidence for exercise-induced myocardial ischemia & #13;routine stress test was supervised and interpreted by Dr. Berg . ...................................................... 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 Asx at present. continue medrx Patrick Mascorro MD Cardiology:A1C is do wn to 7.2%. On [facility], lisinippdcanna Mascorro MD Cardiology: T he patient is using CPAP on a regular basis. The patient has been benefiting from therapy and should continue use. June 27, 2024 C urewntly not using CPAP . Has lost weight and sees himself sleeping better w/o the cpap. Patrick Mascorro MD Cardiology:BP well c ontrolled T his visit has been a part of the consistent, comprehensive, and ongoing management of the chronic medical condition(s) listed above for the patient. H is updated medication list for this problem includes: Carvedilol 3.125 Mg Tablet (Carvedilol) ..... Take 1 tablet by mouth twice a day Lisinopril 10 Mg Tablet (Lisinopril) ..... Take 1 tablet by mouth once a day BP today: 121/84 P rior BP: 150/80 (03/21/2023) Patrick Mascorro MD Cardiology: N o new palpitations. Krishna Ibarra NP Cardiology: B P today: 150/80 P rior BP: 123/83 (08/30/2022) The following medications were removed from the medication list: Lisinopril 10 Mg Tablet (Lisinopril) ..... Take 1 tablet by mouth once a day His updated medication list for this problem includes: Carvedilol 3.125 Mg Tablet (Carvedilol) ..... Take 1 tablet by mouth twice a day Lisinopril 10 Mg Tablet (Lisinopril) ..... Take 1 tablet by mouth every day OF DAUGHTER AND HEAVY EMOTIONAL STRESS AT PRESENT TOLERATING MEDRX Krishna Ibarra NP Cardiology: T he patient is using CPAP on a regular basis. The patient has been benefiting from therapy and should continue use. Krishna Ibarra NP Cardiology: H is updated medication list for this problem includes: Atorvastatin 40 Mg Tablet (Atorvastatin) ..... Take 1 tablet by mouth every day Krishna Ibarra NP Cardiology:PCP MANAG ES THE DM AND PT IS ON MUNJARO AND FARXIGA M anaged per PCP L ast A1c 9.4 (03/2023) per Endocrinology. T he following medications were removed from the medication list: Pioglitazone 30 Mg Tablet (Pioglitazone) ..... Take 1 tablet by mouth every day Rybelsus 7 Mg Tablet (Semaglutide) ..... Take 1 tablet by mouth every day Xigduo Xr 10-1,000 Mg Tablet, Ir - Er, Biphasic 24hr (Dapaglifloz propaned-metformin) ..... Take 1 tablet by mouth every day Lisinopril 10 Mg Tablet (Lisinopril) ..... Take 1 tablet by mouth once a day His updated medication list for this problem includes: Lisinopril 10 Mg Tablet (Lisinopril) ..... Take 1 tablet by mouth every day Farxiga 10 Mg Tablet (Dapagliflozin propanediol) ..... Take 1 tablet by mouth once a day Mounjaro 2.5 Mg/0.5 Ml Pen Injector (Tirzepatide) ..... Inject 1 pen injector subcutaneously once a week for 4 weeks, if tolerated will increase dosage. Krishna Ibarra NP Telehealth:Summary a nd Interpretation 1 . Normal exercise capacity 2 . Normal hemodynamic response to exercise 3 . No diagnostic ST or T changes 4 . No significant arrhythmias 5 . There is no evidence for exercise-induced myocardial ischemia routine stress test was supervised and interpreted by Dr. Berg . ...................................................... ............Guera Berg MD August 18, 2022 10:37 AM CONCLUSIONS: 1 . Normal left ventricular systolic function. Normal left ventricular size. Normal left ventricular wall thickness. E/E': 10.0 Left v entricular ejection fraction is measured at 60 %. 2 . Normal right ventricular size. 3 . No significant valvular abnormalities. E lectronically Signed By: Yuliana Mascorro MD, [facility] 2 023-02-21 08:33:49 SOLUTION DIRECTOR C C: Patrick Mascorro MD, [facility] E lectronically signed by Patrick Mascorro MD on 05/24/2022 at 1:24 PM Patrick Mascorro MD Telehealth: H is updated medication list for this problem includes: Atorvastatin 40 Mg Tablet (Atorvastatin) ..... Take 1 tablet by mouth every day Patrick Mascorro MD Telehealth: P TCA stenting with a cutting balloon atherectomy of the LAD utilizing t he placement of a 3 mm x 38 mm [place] drug-eluting stent. 5 . Intravascular ultrasound of the ramus intermedius followed by PTCA s tenting of the proximal segment with a cutting balloon atherectomy w ith implantation of 3 x 18 Bi[employer]si[place] drug-eluting stent and d irect stenting of the distal 90% lesion with a 2.5 x 12 [place] d rug-eluting stent. i ncreased coreg to 6.25mg bid December 20, 2022 n o new CP or SOB S ummary and Interpretation 1 . Normal exercise capacity 2 . Normal hemodynamic response to exercise 3 . No diagnostic ST or T changes 4 . No significant arrhythmias 5 . There is no evidence for exercise-induced myocardial ischemia & #13;routine stress test was supervised and interpreted by Dr. Berg . ...................................................... ............Guera Berg MD August 18, 2022 10:37 AM Patrick Mascorro MD Telehealth:moderate JOSIANE on sleep test, needs CPAP in preference to autopap since he had prior CAD/NH Patrick Mascorro MD Telehealth:stable on BP meds H is updated medication list for this problem includes: Carvedilol 3.125 Mg Tablet (Carvedilol) ..... Take 1 tablet by mouth twice a day Lisinopril 10 Mg Tablet (Lisinopril) ..... Take 1 tablet by mouth every day Lisinopril 10 Mg Tablet (Lisinopril) ..... Take 1 tablet by mouth every day Patrick Mascorro MD Cardiology:No new palpitations. Patrick Mascorro MD Cardiology: H is updated medication list for this problem includes: Atorvastatin 40 Mg Tablet (Atorvastatin) ..... Take 1 tablet by mouth every day Patrick Mascorro MD Cardiology: H AD PALIPS WITH CP TOOK SLNTG W ILL GIV IMDUR AND GET TLE MONOTOR February 18, 2021 f eels well hr better on coreg 6.25mg bid n o new angina will continue wiht medrx Patrick Mascorro MD Cardiology:Echo from 05/25 C ONCLUSIONS: 1 . Normal left ventricular systolic function. Normal left ventricular size. Normal left ventricular wall thickness. E/E': 10.0 Left v entricular ejection fraction is measured at 60 %. 2 . Normal right ventricular size. 3 . No significant valvular abnormalities. Stress test from 08/17/22 T yoel Exercise Duration: 10:01 A ctivity Status: Active M ET's: 10.7 F AI Active: 13% E quivalent Age Active: 50 Summary and Interpretation 1 . Normal exercise capacity 2 . Normal hemodynamic response to exercise 3. No diagnostic ST or T changes 4 . No significant arrhythmias 5 . There is no evidence for exercise-induced myocardial ischemia Patrick Mascorro MD Cardiology:Ac down to 6.9. Laurel Mascorro MD Cardiology: H is updated medication list for this problem includes: Atorvastatin 40 Mg Tablet (Atorvastatin) ..... Take 1 tablet by mouth every day Patrick Mascorro MD Cardiology: H is updated medication list for this problem includes: Atorvastatin 40 Mg Tablet (Atorvastatin) ..... Take 1 tablet by mouth every day Patrick Mascorro MD Cardiology: B P today: 116/79 P rior BP: 127/75 (07/01/2021) His updated medication list for this problem includes: Carvedilol 3.125 Mg Tablet (Carvedilol) ..... Take 1 tablet by mouth twice a day Lisinopril 10 Mg Tablet (Lisinopril) ..... Take 1 tablet by mouth every day Patrick Mascorro MD Cardiology: H AD PALIPS WITH CP TOOK SLNTG W ILL GIV IMDUR AND GET TLE MONOTOR February 18, 2021 f eels well hr better on coreg 6.25mg bid n o new angina will continue wiht medrx Patrick Mascorro MD Cardiology: P TCA stenting with a cutting balloon atherectomy of the LAD utilizing t he placement of a 3 mm x 38 mm [place]ain drug-eluting stent. 5 . Intravascular ultrasound of the ramus intermedius followed by PTCA s tenting of the proximal segment with a cutting balloon atherectomy w ith implantation of 3 x 18 [place] drug-eluting stent and d irect stenting of the distal 90% lesion with a 2.5 x 12 [place] d rug-eluting stent. i ncreased coreg to 6.25mg bid Patrick Mascorro MD Cardiology: n o new palps on coreg Patrick Mascorro MD Cardiology: H is updated medication list for this problem includes: Atorvastatin 40 Mg Tablet (Atorvastatin) ..... Take 1 tablet by mouth every day Patrick Mascorro MD Cardiology:sx may be related to hypoglycemia r ecommended to modify diet and consume long acting sugars /carbs at beditme to support blood sugars and contact dibetes doc Patrick Mascorro MD Cardiology: P TCA stenting with a cutting balloon atherectomy of the LAD utilizing t he placement of a 3 mm x 38 mm [place]ain drug-eluting stent. 5 . Intravascular ultrasound of the ramus intermedius followed by PTCA s tenting of the proximal segment with a cutting balloon atherectomy w ith implantation of 3 x 18 [place] drug-eluting stent and d irect stenting of the distal 90% lesion with a 2.5 x 12 [place] d rug-eluting stent. i ncreased coreg to 6.25mg bid Patrick Mascorro MD Cardiology:no new palps on coreg Patrick Mascorro MD Cardiology: H is updated medication list for this problem includes: Lisinopril 10 Mg Tablet (Lisinopril) ..... Take 1 tablet by mouth every day Carvedilol 3.125 Mg Tablet (Carvedilol) ..... Take 1 tablet by mouth twice a day BP today: 127/75 P rior BP: 120/70 (02/18/2021) Patrick Mascorro MD Cardiology:PTCA sten ting with a cutting balloon atherectomy of the LAD utilizing t he placement of a 3 mm x 38 mm [place] drug-eluting stent. 5 . Intravascular ultrasound of the ramus intermedius followed by PTCA s tenting of the proximal segment with a cutting balloon atherectomy w ith implantation of 3 x 18 [place] drug-eluting stent and d irect stenting of the distal 90% lesion with a 2.5 x 12 [place] d rug-eluting stent. i ncreased coreg to 6.25mg bid H is updated medication list for this problem includes: Isosorbide Mononitrate 30 Mg Tablet Extended Release 24 Hr (Isosorbide mononitrate) ..... Take 1 tablet by mouth daily Nitroglycerin 0.4 Mg Tablet, Sublingual (Nitroglycerin) ..... Place 1 tablet under tongue for chest pain as needed. may repeat every 5 minutes if still having chest pain- to max of 3 tablets per episode.if no relief after 3rd dose, go to er Carvedilol 3.125 Mg Tablet (Carvedilol) ..... Take 1 tablet by mouth twice a day Lisinopril 10 Mg Tablet (Lisinopril) ..... Take 1 tablet by mouth every day Clopidogrel 75 Mg Tablet (Clopidogrel) ..... Take 1 tablet by mouth every day Patrick Mascorro MD Cardiology: H is updated medication list for this problem includes: Rybelsus 7 Mg Tablet (Semaglutide) ..... Take 1 tablet by mouth every day Xigduo Xr 10-1,000 Mg Tablet, Ir - Er, Biphasic 24hr (Dapagliflozin-metformin) ..... Take 1 tablet by mouth every day Pioglitazone 30 Mg Tablet (Pioglitazone) ..... Take 1 tablet by mouth every day Lisinopril 10 Mg Tablet (Lisinopril) ..... Take 1 tablet by mouth every day Patrick Mascorro MD Cardiology: H is updated medication list for this problem includes: Atorvastatin 40 Mg Tablet (Atorvastatin) ..... Take 1 tablet by mouth every day Patrick Mascorro MD Cardiology: H is updated medication list for this problem includes: Atorvastatin 40 Mg Tablet (Atorvastatin) ..... Take 1 tablet by mouth every day Patrick Mascorro MD Cardiology: H AD PALIPS WITH CP TOOK SLNTG W ILL GIV IMDUR AND GET TLE MONOTOR February 18, 2021 f eels well hr better on coreg 6.25mg bid n o new angina will continue wiht medrx Patrick Mascorro MD Cardiology:no palpit ations stable on coreg H is updated medication list for this problem includes: Isosorbide Mononitrate 30 Mg Tablet Extended Release 24 Hr (Isosorbide mononitrate) ..... Take 1 tablet by mouth daily Nitroglycerin 0.4 Mg Tablet, Sublingual (Nitroglycerin) ..... Place 1 tablet under tongue for chest pain as needed. may repeat every 5 minutes if still having chest pain- to max of 3 tablets per episode.if no relief after 3rd dose, go to er Carvedilol 3.125 Mg Tablet (Carvedilol) ..... Take 1 tablet by mouth twice a day Lisinopril 10 Mg Tablet (Lisinopril) ..... Take 1 tablet by mouth every day Clopidogrel 75 Mg Tablet (Clopidogrel) ..... Take 1 tablet by mouth every day Patrick Mascorro MD Cardiology: H is updated medication list for this problem includes: Rybelsus 7 Mg Tablet (Semaglutide) ..... Take 1 tablet by mouth every day Xigduo Xr 10-1,000 Mg Tablet, Ir - Er, Biphasic 24hr (Dapagliflozin-metformin) ..... Take 1 tablet by mouth every day Pioglitazone 30 Mg Tablet (Pioglitazone) ..... Take 1 tablet by mouth every day Lisinopril 10 Mg Tablet (Lisinopril) ..... Take 1 tablet by mouth every day Patrick Mascorro MD Cardiology: H is updated medication list for this problem includes: Atorvastatin 40 Mg Tablet (Atorvastatin) ..... Take 1 tablet by mouth every day Patrick Mascorro MD Cardiology:increased coreg to 6.25mg bid H is updated medication list for this problem includes: Isosorbide Mononitrate 30 Mg Tablet Extended Release 24 Hr (Isosorbide mononitrate) ..... Take 1 tablet by mouth daily Nitroglycerin 0.4 Mg Tablet, Sublingual (Nitroglycerin) ..... Place 1 tablet under tongue for chest pain as needed. may repeat every 5 minutes if still having chest pain- to max of 3 tablets per episode.if no relief after 3rd dose, go to er Carvedilol 3.125 Mg Tablet (Carvedilol) ..... Take 1 tablet by mouth twice a day Lisinopril 10 Mg Tablet (Lisinopril) ..... Take 1 tablet by mouth every day Clopidogrel 75 Mg Tablet (Clopidogrel) ..... Take 1 tablet by mouth every day Patrick Mascorro MD Cardiology:mildly ta chycardic will increase coreg to 6..25mg bid B P today: 130/76 P rior BP: 138/70 (01/19/2021) Patrick Mascorro MD Cardiology: H is updated medication list for this problem includes: Atorvastatin 40 Mg Tablet (Atorvastatin) ..... Take 1 tablet by mouth every day Patrick Mascorro MD Cardiology: R /O AFIB WILL NEED TELE MONITOR Patrick Mascorro MD Cardiology: H AD PALIPS WITH CP TOOK SLNTG W ILL GIV IMDUR AND GET TLE MONOTOR Patrick Mascorro MD Cardiology follow up :R/O AFIB W ILL NEED TELE MONITOR Patrick Mascorro MD Cardiology follow up :HAD PALIPS WITH CP TOOK SLNTG W ILL GIV IMDUR AND GET TLE MONOTOR Patrick Mascorro MD Cardiology follow up : P TCA stenting with a cutting balloon atherectomy of the LAD utilizing t he placement of a 3 mm x 38 mm [place] drug-eluting stent. Intravascular ultrasound of the ramus intermedius followed by PTCA s tenting of the proximal segment with a cutting balloon atherectomy w ith implantation of 3 x 18 [place] drug-eluting stent and d irect stenting of the distal 90% lesion with a 2.5 x 12 [place] d rug-eluting stent. On DApt H is updated medication list for this problem includes: Carvedilol 3.125 Mg Tablet (Carvedilol) ..... Take 1 tablet by mouth twice a day Lisinopril 10 Mg Tablet (Lisinopril) ..... Take 1 tablet by mouth every day Clopidogrel 75 Mg Tablet (Clopidogrel) ..... Take 1 tablet by mouth every day January 19, 2021 C OMPLIANT WITH ASA PLAVIX Patrick Mascorro MD Cardiology follow up : H is updated medication list for this problem includes: Carvedilol 3.125 Mg Tablet (Carvedilol) ..... Take 1 tablet by mouth twice a day Lisinopril 10 Mg Tablet (Lisinopril) ..... Take 1 tablet by mouth every day Patrick Mascorro MD Cardiology:PTCA sten ting with a cutting balloon atherectomy of the LAD utilizing t he placement of a 3 mm x 38 mm [place] drug-eluting stent. Intravascular ultrasound of the ramus intermedius followed by PTCA s tenting of the proximal segment with a cutting balloon atherectomy w ith implantation of 3 x 18 [place] drug-eluting stent and d irect stenting of the distal 90% lesion with a 2.5 x 12 [place] d rug-eluting stent. On DApt H is updated medication list for this problem includes: Carvedilol 3.125 Mg Tablet (Carvedilol) ..... Take 1 tablet by mouth twice a day Lisinopril 10 Mg Tablet (Lisinopril) ..... Take 1 tablet by mouth every day Clopidogrel 75 Mg Tablet (Clopidogrel) ..... Take 1 tablet by mouth every day Patrick Mascorro MD Cardiology: H is updated medication list for this problem includes: Atorvastatin 40 Mg Tablet (Atorvastatin) ..... Take 1 tablet by mouth every day Patrick Mascorro MD Date Name Carotid Duplex Bilat eral Complete Echo Lipoprotein (a) LIPID PANEL COMPREHENSIVE METABO LIC PANEL, W/EGFR EKG Sleep Study Titratio n Sleep Study Sleep Study Home CBC (INCLUDES DIFF/P LT) TSH, free T4, total T3 HEMOGLOBIN A1c Lipoprotein (a) LIPID PANEL COMPREHENSIVE METABO LIC PANEL, W/EGFR Complete Echo LIPID PANEL COMPREHENSIVE METABO LIC PANEL, W/EGFR Stress Routine Stress Exercise Card iolite TSH, free T4, total T3 PROBNP, N TERMINAL HEMOGLOBIN A1c LIPID PANEL COMPREHENSIVE METABO LIC PANEL, W/EGFR Sleep Study Home Monitor - Telemetry (Mobile Cardiac) Complete Echo Carotid Duplex Bilat eral Complete Echo TSH, free T4, total T3 HEMOGLOBIN A1c LIPID PANEL COMPREHENSIVE METABO LIC PANEL, W/EGFR HISTORY OF PROCEDURES Procedure Date Procedure Name Provider Procedure Notes S tatus Complex e/m visit add on Patrick Mascorro MD completed EKG Patrick Mascorro MD compl eted EKG Patrick Mascorro MD compl eted Event Monitor Patrick Mascorro MD co mpleted EKG Patrick Mascorro MD compl eted EKG Patrick Mascorro MD compl eted EKG Patrick Mascorro MD compl eted
--- OUTSIDE RECORDS SUMMARY | 2024-08-04 09:17 | XMS_ITS | Clinical Summary ---
Author Organization [facility] Address [address] [place] [address] Care Team Providers Care Sheet Catcher Name Role Phone Liss Randle NP Primary Care Provider [phone] Allergies No known active allergies Medications carvedilol 3.125 MG tablet Take 1 tablet (3.125 mg total) by mouth 2 (two) times daily. 1 Active nitroglycerin 0.4 MG SL tablet 1 Active isosorbide mononitrate ER 30 MG 24 hr tablet 1 Active atorvastatin (LIPITOR) 40 MG tabletIndications:M ixed hyperlipidemia Take 1 tablet (40 mg total) by mouth daily. 90 tablet 3 3 Active clopidogrel (PLAVIX) 75 MG tabletIndications:A TN anterior wall (CMS/HCC HHS/HCC) Take 1 tablet (75 mg total) by mouth daily. 90 tablet 3 3 Active lisinopril (PRINIVIL) 10 MG tabletIndications:P rimary hypertension Take 1 tablet (10 mg total) by mouth daily. 90 tablet 3 3 Active vitamin D2, ergocalciferol, (DRISDOL) 1.25 mg capsuleIndications: Vitamin D deficiency Take 1 capsule (50,000 Units total) by mouth every 7 days. 12 capsule 3 4 Active ACETAMINOPHEN EXTRA STRENGTH 500 MG tablet Take 2 tablets (1,000 mg total) by mouth every 6 (six) hours as needed. FOR PAIN 4 Active tirzepatide (MOUNJARO) 15 MG/0.5ML injectionIndication s:Diabetes Mellitus Inject 1 Pen into the skin every 7 days. Indications: Diabetes 6 mL 3 Active Empagliflozin-metFO RMIN HCl ER (SYNJARDY XR) 25-1000 MG TABLET SR 24 HRIndications:Type 2 diabetes mellitus without complication, without long-term current use of insulin ([facility]) Take 1 tablet by mouth daily. 90 tablet 3 Active dapagliflozin (FARXIGA) 10 MG tablet Take 1 tablet (10 mg total) by mouth daily. Active FLUoxetine (PROZAC) 20 MG capsuleIndications: Anxiety TAKE 1 CAPSULE(20 MG) BY MOUTH DAILY 90 capsule 3 Active Active Problems Problem Noted Date Diagnosed Date Palpitations 01/19/2021 Other chest pain 01/19/2021 AMI anterior wall ([facility]) 12/15/2020 Type 2 diabetes mellitus wit hout complications ([facility]) 12/15/2020 Low testosterone 03/23/2017 Hyperlipidemia 06/28/2012 Diabetes mellitus ([facility]) 06/03/2012 Erectile dysfunction of nonorganic origin 2012 Hypertension 06/03/2012 Encounters Date Type Department Care Team Description 06/27/2024 Scan HEALTH INFO SRVCS Scanned, Doc [facility] 06/13/2024 9:20 AM CDT Office Visit [facility] Medical [facility] [address] [place] [address] [phone] Shannon De Dios PA-C New Patient (Chronic bilateral knee pain. L >R. States there's stiffness and fatigued. States the left knee feels inverted. Intermittent N/T in the evenings. ) 06/13/2024 Travel 06/12/2024 Orders Only [facility] [address] [place] [address] Shannon De Dios PA-C 06/02/2024 Telephone [facility] Family [facility] Medicine - [place] [address] [place] [address] Liss Randle, ELECTRONIC TEST TECHNICIAN Joint Pain from Last 3 Months Immunizations Immunization Administration Dates Next Due Fluzone (IIV3, Trivalent, 0.5 ML Prefilled Syrin ge) 04/11/2024 Fluzone 6 Months+ Quad (0.5 mL Prefilled Syringe ) 03/09/2023 Fluzone High Dose - >Age 65 (Prefilled Syringe) 05/14/2020 Influenza Adult (Generic) 02/12/2015 PFIZER COVID-19 (12+) MRNA, LNP-S, PF, RADHA-SUCROSE, 30 MCG/0.3 ML (COMIRNATY) 03/09/2023 Pneumococcal (Prevnar 13) 01/21/2016 Tdap (Generic) 04/02/2009,1978 Tdap (Historical Only-select from magnify glass) 05/14/2020 Family History Medical History Relation Comments Diabetes Father Cancer Maternal Grandmother Diabetes Maternal Grandmother None Mother Diabetes Paternal Grandfather Heart Disease Paternal Grandfather Hypertension Paternal Grandfather Cancer Paternal Grandmother Diabetes Paternal Grandmother Bipolar Disorder Paternal Uncle Relation Status Comments Father Maternal Grandmother Mother Paternal Grandfather Paternal Grandmother Paternal Uncle Social History Tobacco Use Types Packs/Day Years Used Date Smoking Tobacco: Never Passive Smoke Exposure: Never Smokeless Tobacco: Never Tobacco Cessation:Counseling Given: No Alcohol Use Standard Drinks/Week Comments No 0 [...] on file Sexual Orientation Not on file Last Filed Vital Signs Vital Sign Reading Time Taken Comments Blood Pressure 112/83 06/13/2024 9:44 AM CDT Pulse 82 06/13/2024 9:44 AM CDT Temperature 36.2 C (97.1 F) 06/13/2024 9:13 AM CDT Respiratory Rate 18 04/11/2024 8:58 AM LICENSING DIRECTOR Oxygen Saturation 98% 04/11/2024 8:58 AM LICENSING DIRECTOR Inhaled Oxygen Concentration - - Weight 112.8 kg (248 lb 9.6 oz) 06/13/2024 9:13 AM CDT Height 185.4 cm (6' 1 ) 06/13/2024 9:13 AM CDT p t states Body Mass Index 32.8 06/13/2024 9:13 AM CDT Plan of Treatment Health Maintenance Due Date Last Done Comments ASCVD Statin 1978 Kidney Health Evaluation 1978 Hepatitis B Vaccines (1 of 3 - 19+ 3-dose series) 1997 Pneumococcal Vaccine: Pediatrics (0 to 5 Years) and At-Risk Patients (6 to 49 Years) (2 of 2 - PPSV23) 03/17/2016 01/21/2016 COVID-19 Vaccine ( season) 2023 03/09/2023, 07/06/2020, 06/13/2020 Diabetes: Retinopathy Eye Exam 05/10/2024 05/10/2023, 08/10/2022 Hemoglobin A1C 10/09/2024 04/11/2024, 05/04, 03/09/2023, Additional history exists Annual Physical 04/11/2025 04/11/2024, 10/2022, 09/27/2021, Additional history exists Lipid Panel 04/11/2025 04/11/2024, 05/03, 10/04/2017, Additional history exists Colorectal Cancer Screening FIT-DNA (3 Years) 04/27/2027 04/27/2024, 04/27/2024 DTaP, Tdap and Td Vaccines (3 - Td or Tdap) 05/14/2030 05/14/2020, 04/02/2009, 1978 Hepatitis C Completed 05/14/2020 PHQ-2 (Physician [place]) Completed 04/11/2024 HPV Vaccines Aged Out No longer eligi ble based on patient's age to complete this topic Meningococcal B Vaccine Aged Out No l onger eligible based on patient's age to complete this topic Meningococcal Vaccine Aged Out No vlad yassine eligible based on patient's age to complete this topic RSV Immunizations Under 20 Months Aged Out No longer eligible based on patient's age to complete this topic Procedures Procedure Name Priority Date/Time Associated Diagnosis Comments XR KNEE LT 3V Routine 06/13/2024 9:10 AM CDT Pain in both knees, unspecified chronicity XR KNEE RT 3V Routine 06/13/2024 9:10 AM CDT Pain in both knees, unspecified chronicity COLOGUARD (EXACT SCIENCE) Routine 04/27/2024 12:45 PM LICENSING DIRECTOR Screening for colon cancer LIPID PANEL Routine 04/11/2024 9:39 AM LICENSING DIRECTOR Mixed hyperlipidemia HEMOGLOBIN, GLYCOSYLATED Routine 04/11/2024 Type 2 diabetes mellitus without complication, without long-term current use of insulin (CMS/HCC HHS/HCC) DIABETIC RETINOPATHY EXAM (POSITIVE)(SCAN ORDER) Routine 05/10/2023 HEPATITIS C ANTIBODY Routine 05/14/2020 9:57 AM LICENSING DIRECTOR Need for hepatitis C screening test from Last 3 Months or Most Recently Relevant to Health Maintenance Results * XR KNEE LT 3V (06/13/2024 9:10 AM CDT) Anatomical Region Laterality Modality Knee Radiographic Yasemin ging 06/13/2024 11:0 2 AM CDT Impressions 06/13/2024 11:05 AM CDT IMPRESSION: 1. No acute abnormality identified involving either knee. 2. Mild bilateral arthritic changes. Ordered By: SHANNON DE DIOS Interpreted By: Lukas Amaro MD, 06/13/2024 11:02 AM Narrative 06/13/2024 11:05 AM CDT Examination: XR KNEE RT 3V, XR KNEE LT 3V Exam time: 06/13/2024 9:10 AM Clinical history: Bilateral knee pain, left worse in right. Comparison: No prior exam Technique: Upright AP and lateral views of each knee. Bilateral sunrise views. Findings: On the right, medial and lateral joint spaces are within normal limits. There are tiny medial and lateral marginal osteophytes. There is calcification in the region of the medial and lateral menisci consistent with chondrocalcinosis. There is minimal hypertrophic change within the patellofemoral compartment. No radiographic evidence of joint effusion. No evidence of fracture or acute osseous abnormality. On the left, medial and lateral joint spaces are within normal limits. There are tiny medial and lateral marginal osteophytes. There are tiny hypertrophic changes within the patellofemoral compartment. Calcification is present in the region of the medial and lateral menisci consistent with chondrocalcinosis. No radiographic evidence of joint effusion. No evidence of fracture or acute osseous abnormality. Procedure Note Lukas Amaro MD - 06/13/2024 Examination: XR KNEE RT 3V, XR KNEE LT 3V Exam time: 06/13/2024 9:10 AM Clinical history: Bilateral knee pain, left worse in right. Comparison: No prior exam Technique: Upright AP and lateral views of each knee. Bilateral sunriseviews. Findings: On the right, medial and lateral joint spaces are within normallimits. There are tiny medial and lateral marginal osteophytes. There iscalcification in the region of the medial and lateral menisci consistentwith chondrocalcinosis. There is minimal hypertrophic change within thepatellofemoral compartment. No radiographic evidence of joint effusion. Noevidence of fracture or acute osseous abnormality. On the left, medial and lateral joint spaces are within normal limits.There are tiny medial and lateral marginal osteophytes. There are tinyhypertrophic changes within the patellofemoral compartment. Calcificationis present in the region of the medial and lateral menisci consistent withchondrocalcinosis. No radiographic evidence of joint effusion. No evidenceof fracture or acute osseous abnormality. IMPRESSION: 1. No acute abnormality identified involving either knee. 2. Mild bilateral arthritic changes. Ordered By: SHANNON DE DIOS Interpreted By: Lukas Amaro MD, 06/13/2024 11:02 AM us Shannon CHAN-Bro GENERAL IMAGING Final Resul t * XR KNEE RT 3V (06/13/2024 9:10 AM CDT) Anatomical Region Laterality Modality Knee Radiographic Yasemin ging 06/13/2024 11:0 2 AM CDT Impressions 06/13/2024 11:05 AM CDT IMPRESSION: 1. No acute abnormality identified involving either knee. 2. Mild bilateral arthritic changes. Ordered By: SHANNON DE DIOS Interpreted By: Lukas Amaro MD, 06/13/2024 11:02 AM Narrative 06/13/2024 11:05 AM CDT Examination: XR KNEE RT 3V, XR KNEE LT 3V Exam time: 06/13/2024 9:10 AM Clinical history: Bilateral knee pain, left worse in right. Comparison: No prior exam Technique: Upright AP and lateral views of each knee. Bilateral sunrise views. Findings: On the right, medial and lateral joint spaces are within normal limits. There are tiny medial and lateral marginal osteophytes. There is calcification in the region of the medial and lateral menisci consistent with chondrocalcinosis. There is minimal hypertrophic change within the patellofemoral compartment. No radiographic evidence of joint effusion. No evidence of fracture or acute osseous abnormality. On the left, medial and lateral joint spaces are within normal limits. There are tiny medial and lateral marginal osteophytes. There are tiny hypertrophic changes within the patellofemoral compartment. Calcification is present in the region of the medial and lateral menisci consistent with chondrocalcinosis. No radiographic evidence of joint effusion. No evidence of fracture or acute osseous abnormality. Procedure Note Lukas Amaro MD - 06/13/2024 Examination: XR KNEE RT 3V, XR KNEE LT 3V Exam time: 06/13/2024 9:10 AM Clinical history: Bilateral knee pain, left worse in right. Comparison: No prior exam Technique: Upright AP and lateral views of each knee. Bilateral sunriseviews. Findings: On the right, medial and lateral joint spaces are within normallimits. There are tiny medial and lateral marginal osteophytes. There iscalcification in the region of the medial and lateral menisci consistentwith chondrocalcinosis. There is minimal hypertrophic change within thepatellofemoral compartment. No radiographic evidence of joint effusion. Noevidence of fracture or acute osseous abnormality. On the left, medial and lateral joint spaces are within normal limits.There are tiny medial and lateral marginal osteophytes. There are tinyhypertrophic changes within the patellofemoral compartment. Calcificationis present in the region of the medial and lateral menisci consistent withchondrocalcinosis. No radiographic evidence of joint effusion. No evidenceof fracture or acute osseous abnormality. IMPRESSION: 1. No acute abnormality identified involving either knee. 2. Mild bilateral arthritic changes. Ordered By: SHANNON DE DIOS Interpreted By: Lukas Amaro MD, 06/13/2024 11:02 AM us Shannon De Dios PA-C GENERAL IMAGING Final Resul t * COLOGUARD (Timeful SCIENCE) (04/27/2024 12:45 PM LICENSING DIRECTOR) COLOGUARD RESULT Negative Negative [facility] (CLIA #:[id number]) Comment: NEGATIVE TEST RESULT. A negative Cologuard result indicates a low likelihood that a colorectal cancer (CRC) or advanced adenoma (adenomatous polyps with more advanced pre-malignant features) is present. The chance that a person with a negative Cologuard test has a colorectal cancer is less than 1 in 1500 (negative predictive value >99.9%) or has an advanced adenoma is less than 5.3% (negative predictive value 94.7%). These data are based on a prospective cross-sectional study of 10,000 individuals at average risk for colorectal cancer who were screened with both Cologuard and colonoscopy. (Doretha Hopkins al, N Engl J Med 2014;370(14):6068-0088) The normal value (reference range) for this assay is negative. COLOGUARD RE-SCREENING RECOMMENDATION: Periodic colorectal cancer screening is an important part of preventive healthcare for asymptomatic individuals at average risk for colorectal cancer. Following a negative Cologuard result, the [place] Cancer Society and U.S. Multi-Society Task Force screening guidelines recommend a Cologuard re-screening interval of 3 years. References: [place] Cancer Society Guideline for Colorectal Cancer Screening: https://www.cancer.org/cancer/hljft-agivup-beirus/amahguxav-wataidroo-xhgyaej/ac s-rec ommendations.html.; Jonah DK, Smiley CR, Wes MakK, Colorectal Cancer Screening: Recommendations for Physicians and Patients from the U.S. Multi-Society Task Force on Colorectal Cancer Screening , Am J Gastroenterology 2017; 112:6372-6651. TEST DESCRIPTION: Composite algorithmic analysis of stool DNA-biomarkers with hemoglobin immunoassay. Quantitative values of individual biomarkers are not reportable and are not associated with individual biomarker result reference ranges. Cologuard is intended for colorectal cancer screening of adults of either sex, 45 years or older, who are at average-risk for colorectal cancer (CRC). Cologuard has been approved for use by the U.S. FDA. The performance of Cologuard was established in a cross sectional study of average-risk adults aged 50-84. Cologuard performance in patients ages 45 to 49 years was estimated by sub-group analysis of near-age groups. Colonoscopies performed for a positive result may find as the most clinically significant lesion: colorectal cancer [4.0%], advanced adenoma (including sessile serrated polyps greater than or equal to 1cm diameter) [20%] or non- advanced adenoma [31%]; or no colorectal neoplasia [45%]. These estimates are derived from a prospective cross-sectional screening study of 10,000 individuals at average risk for colorectal cancer who were screened with both Cologuard and colonoscopy. (Doretha Hopkins al, N Engl J Med 2014;370(14):3738-6583.) Cologuard may produce a false negative or false positive result (no colorectal cancer or precancerous polyp present at colonoscopy follow up). A negative Cologuard test result does not guarantee the absence of CRC or advanced adenoma (pre-cancer). The current Cologuard screening interval is every 3 years. ([place] Cancer Society and U.S. Multi-Society Task Force). Cologuard performance data in a 10,000 patient pivotal study using colonoscopy as the reference method can be accessed at the following location: www.[employer]ings.Karma Snap/results. Additional description of the Cologuard test process, warnings and precautions can be found at www.Jobmetoord.com. STOOL STOOL SPECIMEN / Unknown 04/27/2024 12:45 PM LICENSING DIRECTOR 04/29/2024 9:53 AM LICENSING DIRECTOR us Liss Randle NP BODY FLUIDS AND STOOLS ORDERABLE S Final Result [facility]) [address] [place] [address], [facility] (CLIA #:[id number]) [address] [place] [address] * (ABNORMAL) LIPID PANEL (04/11/2024 9:39 AM LICENSING DIRECTOR) CHOLESTEROL 110 100 - 199 mg/dL [facility] 1 TRIGLYCERIDES 88 0 - 149 mg/dL [facility] HDL 36(L) >39 mg/dL [facility] VLDL CALCULATION 17 5 - 40 mg/dL [facility] 1 LDL (CALCULATED) 57 0 - 99 mg/dL [facility] 1 04/11/2024 9:39 AM LICENSING DIRECTOR 04/11/2024 Narrative [facility] - 04/16/2024 3:07 AM LICENSING DIRECTOR Performed at: 01 - [facility] [place] [id number] Food And Nutrition Supervisor: Ry Moreno PhD, Phone: [phone] us Liss Randle NP LABORATORY Final Result Performing Organization Address [facility] Co de Phone Number [facility] [address] [place] [address] [facility] * (ABNORMAL) A1C (BACK OFFICE) (04/11/2024) HGB A1C 8.4(A) % [address] [place] 04/11/2024 us Liss Randle NP LABORATORY Final Result [address] [place] [address] [place] [place] [address], [place] [phone] * DIABETIC RETINOPATHY EXAM (POSITIVE) (05/10/2023) us Doc [facility] Scanned SCANNING Final Resu lt [facility] * HEPATITIS C ANTIBODY (05/14/2020 9:57 AM LICENSING DIRECTOR) HEPATITIS C AB <0.1 0.0 - 0.9 s/co ratio [facility] 1 Comment: Negative: < 0.8 Indeterminate: 0.8 - 0.9 Positive: > 0.9 The CDC recommends that a positive HCV antibody result be followed up with a HCV Nucleic Acid Amplification test (143003). 05/14/2020 9:57 AM LICENSING DIRECTOR 05/14/2020 Narrative [facility] - 05/15/2020 8:13 AM LICENSING DIRECTOR Performed at: 01 - [facility] [address] [id number] Food And Nutrition Supervisor: Ry Moreno PhD, Phone: [phone] us Liss Randle ELECTRONIC TEST TECHNICIAN LABORATORY Final Result [facility] [address] [place] [address] [facility] 1 from Last 3 Months or Most Recently Relevant to Health Maintenance Insurance COVID19 [facility] [employer] [place] [address] [facility] Care Teams Sheet Catcher Relationship Specialty Start Date End Date Liss Randle NP [address] [place] [address] PCP - General Nurse Practitioner Family 05/13/18
--- OUTSIDE RECORDS SUMMARY | 2024-08-04 09:17 | XMS_ITS | Encounter Summary ---
Author Organization [facility] Address [address] [place] [address] Care Team Providers Care Clinical Quality Assurance Specialist Name Role Phone Liss Randle ACID CORRECTION HAND Primary Care Provider + Encounter Details Date Type Department Care Team (Late st Contact Info) Description 04/17/2024 [employer] Class[employer] [place] Message Enc [facility] Family [facility] Medicine - [place] [address] [place] [address] [facility], [facility] Provider lab results Social History Tobacco Use Types Packs/Day [...] Total Score: 1 04/11/19 25 9:38 AM FIRST HELPER documented as of this encounter Care Teams Clinical Quality Assurance Specialist Relationship Specialty Start Date End Date Liss Randle, ACID CORRECTION HAND [address] [place] [address] PCP - General Nurse Practitioner Family 05/13/18 documented as of this encounter
[2024-08-04 09:18] LABS: Basophils Absolute Auto 0.1 K/mm3 (0.0-0.1); Basophils Percent Auto 0.6 % (0.2-1.2); Eosinophils Absolute Auto 0.1 K/mm3 (0-0.3); Eosinophils Percent Auto 0.9 % (0-4.4); Hematocrit 47.9 % (42.0-52.0); Hemoglobin 16.5 g/dL (14.0-18.0); Immature Granulocyte Absolute 0.03 K/mm3 (0.00-0.031); Immature Granulocyte Percent A 0.4 % (0-0.5); Lymphocytes Absolute Auto 1.58 K/mm3 (0.9-3.2); Lymphocytes Percent Auto 19.8 % (18.3-44.2); Mean Corpuscular HGB Conc 34.4 g/dl (32-36); Mean Corpuscular Hemoglobin 30.7 pg (26-34); Mean Corpuscular Volume 89.2 fl (80-100); Monocytes Absolute Auto 0.6 K/mm3 (0.1-0.6); Monocytes Percent Auto 7.4 % (2.6-8.5); Neutrophils Absolute Auto 5.7 K/mm3 (1.3-6.7); Neutrophils Percent Auto 70.9 % (45.5-73.1); Platelet Count Result 197 k/mm3 (150-375); Red Blood Count 5.37 M/mm3 (4.6-6.20); Red Cell Distribution Width 12.7 % (11.5-14.5)
[2024-08-04 09:30] LABS: Prothrombin Time 13.7 Seconds (11.1-14.7)
[2024-08-04 09:31] LABS: Partial Thromboplastin Time 26.7 Seconds (22.3-36.8)
[2024-08-04 09:39] LABS: Alanine Aminotransferase 25 U/L (6-50); Albumin Level 4.7 g/dL (3.5-5.1); Alkaline Phosphatase 64 U/L (38-126); Anion Gap 11 mmol/L (4-12); Aspartate Amino Transferase 26 U/L (17-59); Bilirubin,Total 0.5 mg/dL (0.2-1.3); Blood Urea Nitrogen 15 mg/dL (9-20); Calcium 9.2 mg/dL (8.4-10.2); Carbon Dioxide 22 mmol/L (22-30); Chloride 104 mmol/L (98-107); Estimated CRCL calculation 150 ml/min; Estimated Glomerular Filt Rate > 60; Glucose 262 mg/dL (65-110); Lipase 126 U/L (23-300); Potassium 4.2 mmol/L (3.4-5.0); Sodium 137 mmol/L (137-145)
[2024-08-04 09:52] LABS: Troponin I < 0.012 ng/mL (0.000-0.034)
--- OUTSIDE RECORDS SUMMARY | 2024-08-04 10:24 | XMS_ITS | Clinical Summary ---
Author Organization [facility] Address [address] [place] [address] Care Team Providers Care Cigarette Inspector Name Role Phone Liss Randle NP Primary Care Provider [phone] Allergies No known active allergies Medications [...] 3 Active clopidogrel (PLAVIX) 75 MG tabletIndications:A IA anterior wall (CMS/HCC HHS/HCC) Take 1 tablet [...] complication, without long-term current use of insulin ([facility]) Take 1 tablet by mouth daily. 90 tablet 3 Active dapagliflozin (FARXIGA) 10 MG tablet Take 1 tablet (10 mg total) by mouth daily. Active FLUoxetine (PROZAC) 20 MG capsuleIndications: Anxiety TAKE 1 CAPSULE(20 MG) BY MOUTH DAILY 90 capsule 3 Active Active Problems Problem Noted Date Diagnosed Date Palpitations 01/19/2021 Other chest pain 01/19/2021 AMI anterior wall ([facility]) 12/15/2020 Type 2 diabetes mellitus wit hout complications ([facility]) 12/15/2020 Low testosterone 03/23/2017 Hyperlipidemia 06/28/2012 Diabetes mellitus ([facility]) 06/03/2012 Erectile dysfunction of nonorganic origin 2012 Hypertension 06/03/2012 Encounters Date Type Department Care Team Description 06/27/2024 Scan HEALTH INFO SRVCS Scanned, Doc Med Group 06/13/2024 9:20 AM CDT Office Visit [facility] Medical [facility] [address] [place] [address] [phone] Shannon De Dios PA-C New Patient (Chronic bilateral knee pain. L >R. States there's stiffness and fatigued. States the left knee feels inverted. Intermittent N/T in the evenings. ) 06/13/2024 Travel 06/12/2024 Orders Only [facility] Orthopedic & Sports Medicine [facility] [address] [place] [address] Shannon De Dios PA-C 06/02/2024 Telephone [facility] Family and Sports Medicine - [place] [address] [place] [address] Liss Randle, PACKING INSPECTOR Joint Pain from Last 3 Months Immunizations [...] CDT Respiratory Rate 18 04/11/2024 8:58 AM CADD OPERATOR Oxygen Saturation 98% 04/11/2024 8:58 AM CADD OPERATOR Inhaled Oxygen Concentration - - Weight 112.8 [...] 1980 Hepatitis C Completed 05/14/2020 PHQ-2 (Physician Lime) Completed 04/11/2024 HPV Vaccines Aged Out No [...] COLOGUARD (EXACT SCIENCE) Routine 04/27/2024 12:45 PM CADD OPERATOR Screening for colon cancer LIPID PANEL Routine 04/11/2024 9:39 AM CADD OPERATOR Mixed hyperlipidemia HEMOGLOBIN, GLYCOSYLATED Routine 04/11/2024 Type 2 diabetes mellitus without complication, without long-term current use of insulin (CMS/HCC HHS/HCC) DIABETIC RETINOPATHY EXAM (POSITIVE)(SCAN ORDER) Routine 05/10/2023 HEPATITIS C ANTIBODY Routine 05/14/2020 9:57 AM CADD OPERATOR Need for hepatitis C screening test from [...] GENERAL IMAGING Final Resul t * COLOGUARD ([employer] SCIENCE) (04/27/2024 12:45 PM CADD OPERATOR) COLOGUARD RESULT Negative Negative [employer] (CLIA #:[id number]) Comment: NEGATIVE TEST RESULT. A negative Cologuard [...] (Doretha Hopkins al, N Engl J Med 2014;370(14):7634-5301) The normal value (reference range) for this assay is negative. COLOGUARD RE-SCREENING RECOMMENDATION: Periodic colorectal cancer screening is an important part of preventive healthcare for asymptomatic individuals at average risk for colorectal cancer. Following a negative Cologuard result, the British Cancer Society and U.S. Multi-Society Task Force screening guidelines recommend a Cologuard re-screening interval of 3 years. References: British Cancer Society Guideline for Colorectal Cancer Screening: https://www.cancer.org/cancer/ysmmf-wrkiqi-zwdlqg/gusemgpvv-jjhppjjos-arwavil/ac s-rec ommendations.html.; Jonah DK, Smiley CR, Wes MakK, Colorectal Cancer Screening: Recommendations for Physicians and Patients from the U.S. Multi-Society Task Force on Colorectal Cancer Screening , Am J Gastroenterology 2017; 112:8011-7394. TEST DESCRIPTION: Composite algorithmic analysis of stool [...] (Doretha Hopkins al, N Engl J Med 2014;370(14):7221-1257.) Cologuard may produce a false negative or false positive result (no colorectal cancer or precancerous polyp present at colonoscopy follow up). A negative Cologuard test result does not guarantee the absence of CRC or advanced adenoma (pre-cancer). The current Cologuard screening interval is every 3 years. (British Cancer Society and U.S. Multi-Society Task Force). Cologuard performance data in a 10,000 patient pivotal study using colonoscopy as the reference method can be accessed at the following location: www.[employer]Be[employer] Burner/results. Additional description of the Cologuard test process, warnings and precautions can be found at www.[employer].com. STOOL STOOL SPECIMEN / Unknown 04/27/2024 12:45 PM CADD OPERATOR 04/29/2024 9:53 AM CADD OPERATOR us Liss Randle NP BODY FLUIDS AND STOOLS ORDERABLE S Final Result [facility] [facility]) [address] [place] [address], [facility] (CLIA #:[id number]) [address] [place] [address] * (ABNORMAL) LIPID PANEL (04/11/2024 9:39 AM CADD OPERATOR) CHOLESTEROL 110 100 - 199 mg/dL [facility] 1 TRIGLYCERIDES 88 0 - 149 mg/dL [facility] HDL 36(L) >39 mg/dL [facility] VLDL CALCULATION 17 5 - 40 mg/dL [facility] 1 LDL (CALCULATED) 57 0 - 99 mg/dL [facility] 1 04/11/2024 9:39 AM CADD OPERATOR 04/11/2024 Narrative [facility] - 04/16/2024 3:07 AM CADD OPERATOR Performed at: 01 - [facility] [place] [id number] Dynamics Ax Consultant: Ry Moreno PhD, Phone: [phone] us Liss Randle NP LABORATORY Final Result Performing Organization Address [facility] Co de Phone Number [facility] [address] [place] [address] [facility] 1 * (ABNORMAL) A1C (BACK OFFICE) (04/11/2024) HGB A1C 8.4(A) % [address] [place] 04/11/2024 us Liss Randle NP LABORATORY Final Result [address] [place] [address] [place] [place] [address], [place] [phone] * DIABETIC RETINOPATHY EXAM (POSITIVE) (05/10/2023) us Doc [facility] Scanned SCANNING Final Resu lt [facility] * HEPATITIS C ANTIBODY (05/14/2020 9:57 AM CADD OPERATOR) HEPATITIS C AB <0.1 0.0 - 0.9 s/co ratio [facility] 1 Comment: Negative: < 0.8 Indeterminate: 0.8 - 0.9 Positive: > 0.9 The CDC recommends that a positive HCV antibody result be followed up with a HCV Nucleic Acid Amplification test (737874). 05/14/2020 9:57 AM CADD OPERATOR 05/14/2020 Narrative [facility] - 05/15/2020 8:13 AM CADD OPERATOR Performed at: 01 - [facility] [address] [id number] [employer] Consultant: Ry Moreno PhD, Phone: [phone] us Liss Randle PACKING INSPECTOR LABORATORY Final Result [facility] [address] [place] [address] [facility] 1 from Last 3 Months or Most Recently Relevant to Health Maintenance Insurance COVID19 [facility] UNINSURED TESTING [place] [address] [facility] Care Teams Cigarette Inspector Relationship Specialty Start Date End Date Liss Randle NP [address] [place] [address] PCP - General Nurse Practitioner Family 05/13/18
--- OUTSIDE RECORDS SUMMARY | 2024-08-04 10:24 | XMS_ITS | Encounter Summary ---
Author Organization [facility] - [facility] Address [address] [place] [address] Care Team Providers Care Cattle Shipper Name Role Phone Liss Randle CLINICAL COURIER Primary Care Provider + Encounter Details Date Type Department Care Team (Late st Contact Info) Description 05/05/2024 Campus Job Message Enc [facility] Medical Group Family and Sports Medicine - [place] [address] [place] [address] [facility] Provider test results Social History Tobacco Use [...] Total Score: 1 04/11/19 25 9:38 AM MANAGER DEVELOPMENT documented as of this encounter Care Teams Cattle Shipper Relationship Specialty Start Date End Date Liss Randle, CLINICAL COURIER [address] [place] [address] PCP - General Nurse Practitioner Family 05/13/18 documented as of this encounter
--- OUTSIDE RECORDS SUMMARY | 2024-08-04 10:24 | XMS_ITS | CONTINUITY OF CARE DOCUMENT ---
Author Name sheron fabydevante Address Unknown Organization [facility] Address [address] [facility] [address] [facility] [address] [place] [address] Phone [phone] Care Team Providers Care Creative Developer Name Role Phone Subha VIVEROS, Patrick Moran Unavailable ZA HAAS APN Unavailable [phone] WALDO CARLSON ZA Unavailable [phone] PROBLEMS Condition Status Date Provider Notes JOSIANE [...] In-person encounter Office Visit Patrick Mascorro MD [facility] - In-person encounter Office Visit Patrick Mascorro MD [facility] - In-person encounter Office Visit Patrick Mascorro MD [facility] - In-person encounter Office Visit Patrick Mascorro MD [facility] - In-person encounter Office Visit Patrick Mascorro MD [facility] - In-person encounter Office Visit Patrick Mascorro MD [facility] - In-person encounter Office Visit Patrick Mascorro MD [facility] - In-person encounter Office Visit Patrick Mascorro MD [facility] Chest pain atypicalPalpitations - In-person encounter Office Visit Patrick Mascorro MD [place] Family History of Hypertension:Family History of [...] Kenan oxygen saturation, oximetry 98 % Isabel [place] respiratory rate E&M 16 /min Catheri ne [place] pulse rate 80 /min Isabel Kenan weight E&M 253 [lb_av] Isabel Kenan blood pressure, cuff size regular Ca therine Kenan height E&M 72 [in_i] Isabel [place] weight E&M 151 [lb_av] Aniceto gross Body [...] Ponce oxygen saturation, oximetry 98 % Jessica [place] respiratory rate E&M 18 /min Jessica [place] blood pressure, resting Yes Osmel ty [place] height E&M 72 [in_i] Jessica Hansenby weight [...] go to ER - Patrick Mascorro MD [address] [place] 14 Day Sensor kit active 1 UNITS [...] history of marijuana use no Krishna Ibarra FOLDED TOWEL MACHINE OPERATOR drug use no Krishna Steeleri FOLDED TOWEL MACHINE OPERATOR alcohol use no Krishna Steeleri FOLDED TOWEL MACHINE OPERATOR smoking status Never smoker Krishna Lemus i FOLDED TOWEL MACHINE OPERATOR smoking status Never smoker Ashlee Garcia social [...] E&M revi ewed - no changes required Patrikc Mascorro MD smoking status Never smoker Autumn [...] Angina (inactive) Management Plan continue current therapy aPtrick Mascorro MD HRA, CV Assess/Plan, Angina (inactive) Management Plan continue current therapy Patrick Mascorro MD FAMILY HISTORY Family Member Condition Uncle Family History of Hy pertension: Paternal Grandfather Family History of C ongestive Heart Failure: Paternal Grandfather Family History of D iabetes: Maternal Grandmother Family History of H ypertension: Maternal Grandmother Family History of D iabetes: INSURANCE PROVIDERS Payer name Policy type / Coverage type Vestal red green party ID [facility] [id number] Other [id number] ADVANCE DIRECTIVES Name Date DISCUSSED - NO DECISION MADE TREATMENT PLAN Date Name Performer [id number],C,S colette and Interpretation 1 . Normal exercise [...] E lectronically Signed By: Yuliana Mascorro MD, [facility] 2 023-02-21 08:33:49 CLARIFIER OPERATOR HELPER C C: Patrick Mascorro MD, [facility] E lectronically signed by Patrick Mascorro MD on 05/24/2022 at 1:24 PM Patrick Mascorro MD [id number],C, H is updated medication list for this problem includes: Atorvastatin 40 Mg Tablet (Atorvastatin) ..... Take 1 tablet by mouth every day Patrick Mascorro MD [id number],C, P TCA stenting with a cutting balloon atherectomy of the LAD utilizing t he placement of a 3 mm x 38 mm Courtland drug-eluting stent. 5 . Intravascular ultrasound of the ramus intermedius followed by PTCA s tenting of the proximal segment with a cutting balloon atherectomy w ith implantation of 3 x 18 Biotronik Orsiro drug-eluting stent and d irect stenting of the distal 90% lesion with a 2.5 x 12 Courtland d rug-eluting stent. i ncreased coreg to [...] 18, 2022 10:37 AM Patrick Mascorro MD [id number],C,m oderate JOSIANE on sleep test, needs CPAP in preference to autopap since he had prior CAD/AZ Patrick Mascorro MD [id number],C,s table on BP meds H is updated medication list for this problem includes: Carvedilol 3.125 Mg Tablet (Carvedilol) ..... Take 1 tablet by mouth twice a day Lisinopril 10 Mg Tablet (Lisinopril) ..... Take 1 tablet by mouth every day Lisinopril 10 Mg Tablet (Lisinopril) ..... Take 1 tablet by mouth every day Patrick Mascorro MD [id number],C,No new palpit ations. Patrick Mascorro MD [id number],C, H is updated medication list for this problem includes: Atorvastatin 40 Mg Tablet (Atorvastatin) ..... Take 1 tablet by mouth every day Patrick Mascorro MD [id number],C, H AD PALIPS WITH CP TOOK SLNTG W ILL GIV IMDUR AND GET TLE MONOTOR February 18, 2021 f eels well hr better on coreg 6.25mg bid n o new angina will continue wiht medrx Patrick Mascorro MD [id number],C,E cho from 05/25 C ONCLUSIONS: 1 . [...] for exercise-induced myocardial ischemia Patrick Mascorro MD [id number],C,Ac down to 6. 9. Patrick Mascorro MD [id number],C, H is updated medication list for this problem includes: Atorvastatin 40 Mg Tablet (Atorvastatin) ..... Take 1 tablet by mouth every day Patrick Mascorro MD [id number],C, H is updated medication list for this problem includes: Atorvastatin 40 Mg Tablet (Atorvastatin) ..... Take 1 tablet by mouth every day Patrick Mascorro MD [id number],C, B P today: 116/79 P rior BP: 127/75 (07/01/2021) His updated medication list for this problem includes: Carvedilol 3.125 Mg Tablet (Carvedilol) ..... Take 1 tablet by mouth twice a day Lisinopril 10 Mg Tablet (Lisinopril) ..... Take 1 tablet by mouth every day Patrick Mascorro MD [id number],C, H AD PALIPS WITH CP TOOK SLNTG W ILL GIV IMDUR AND GET TLE MONOTOR February 18, 2021 f eels well hr better on coreg 6.25mg bid n o new angina will continue wiht medrx Patrick Mascorro MD [id number],C, P TCA stenting with a cutting balloon [...] coreg to 6.25mg bid Patrick Mascorro MD [id number],C, n o new palps on coreg Patrick Mascorro MD [id number],C, H is updated medication list for this problem includes: Atorvastatin 40 Mg Tablet (Atorvastatin) ..... Take 1 tablet by mouth every day Patrick Mascorro MD [id number],C,s x may be related to hypoglycemia r ecommended to modify diet and consume long acting sugars /carbs at beditme to support blood sugars and contact dibetes doc Patrick Mascorro MD [id number],C, P TCA stenting with a cutting balloon atherectomy of the LAD utilizing t he placement of a 3 mm x 38 mm Courtland drug-eluting stent. 5 . Intravascular ultrasound of the ramus intermedius followed by PTCA s tenting of the proximal segment with a cutting balloon atherectomy w ith implantation of 3 x 18 Biotronik Orsiro drug-eluting stent and d irect stenting of the distal 90% lesion with a 2.5 x 12 Nain d rug-eluting stent. i ncreased coreg to 6.25mg bid Patrick Mascorro MD [id number],C,no new palps on coreg Patrick Mascorro MD [id number],C, H is updated medication list for this problem includes: Lisinopril 10 Mg Tablet (Lisinopril) ..... Take 1 tablet by mouth every day Carvedilol 3.125 Mg Tablet (Carvedilol) ..... Take 1 tablet by mouth twice a day BP today: 127/75 P rior BP: 120/70 (02/18/2021) Patrick Mascorro MD [id number],C,P TCA stenting with a cutting balloon atherectomy of the LAD utilizing t he placement of a 3 mm x 38 mm Courtland drug-eluting stent. 5 . Intravascular ultrasound of the ramus intermedius followed by PTCA s tenting of the proximal segment with a cutting balloon atherectomy w ith implantation of 3 x 18 Biotronik Orsiro drug-eluting stent and d irect stenting of the distal 90% lesion with a 2.5 x 12 Courtland d rug-eluting stent. i ncreased coreg to [...] by mouth every day Patrick Mascorro MD [id number],C, H is updated medication list for this [...] by mouth every day Patrick Mascorro MD [id number],C, H is updated medication list for this problem includes: Atorvastatin 40 Mg Tablet (Atorvastatin) ..... Take 1 tablet by mouth every day Patrick Mascorro MD [id number],C, H is updated medication list for this problem includes: Atorvastatin 40 Mg Tablet (Atorvastatin) ..... Take 1 tablet by mouth every day Patrick Mascorro MD [id number],S, H AD PALIPS WITH CP TOOK SLNTG W ILL GIV IMDUR AND GET TLE MONOTOR February 18, 2021 f eels well hr better on coreg 6.25mg bid n o new angina will continue wiht medrx Patrick Mascorro MD [id number],C,n o palpitations stable on coreg H is [...] by mouth every day Patrick Mascorro MD [id number],C, H is updated medication list for this [...] by mouth every day Patrick Mascorro MD [id number],C, H is updated medication list for this problem includes: Atorvastatin 40 Mg Tablet (Atorvastatin) ..... Take 1 tablet by mouth every day Patrick Mascorro MD [id number],C,i ncreased coreg to 6.25mg bid H is [...] by mouth every day Patrick Mascorro MD [id number],C,m ildly tachycardic will increase coreg to 6..25mg bid B P today: 130/76 P rior BP: 138/70 (01/19/2021) Patrick Mascorro MD [id number],C, H is updated medication list for this problem includes: Atorvastatin 40 Mg Tablet (Atorvastatin) ..... Take 1 tablet by mouth every day Patrick Mascorro MD [id number],C, R /O AFIB WILL NEED TELE MONITOR Patrick Mascorro MD [id number],C, H AD PALIPS WITH CP TOOK SLNTG W ILL GIV IMDUR AND GET TLE MONOTOR Patrick Mascorro MD [id number],C,R/O AFIB WILL NEED TELE MONITOR Patrick Mascorro MD [id number],C,H AD PALIPS WITH CP TOOK SLNTG W ILL GIV IMDUR AND GET TLE MONOTOR Patrick Mascorro MD [id number],C, P TCA stenting with a cutting balloon atherectomy of the LAD utilizing t he placement of a 3 mm x 38 mm Courtland drug-eluting stent. Intravascular ultrasound of the ramus [...] OMPLIANT WITH ASA PLAVIX Patrick Mascorro MD [id number],C, H is updated medication list for this problem includes: Carvedilol 3.125 Mg Tablet (Carvedilol) ..... Take 1 tablet by mouth twice a day Lisinopril 10 Mg Tablet (Lisinopril) ..... Take 1 tablet by mouth every day Patrick Mascorro MD [id number],C,P TCA stenting with a cutting balloon atherectomy [...] by mouth every day Patrick Mascorro MD [id number],C, H is updated medication list for this [...] of a 3 mm x 38 mm Courtland drug-eluting stent. 5 . Intravascular ultrasound of [...] Cardiology:A1C is do wn to 7.2%. On [facility], lisinippril Patrick Mascorro MD Cardiology: T he patient is [...] E lectronically Signed By: Yuliana Mascorro MD, [facility] 2 023-02- 08:33:49 CLARIFIER OPERATOR HELPER C C: Patrick Mascorro MD, [facility] E lectronically signed by Patrick Mascorro MD [...] of a 3 mm x 38 mm Court[place] drug-eluting stent. 5 . Intravascular ultrasound of the ramus intermedius followed by PTCA s tenting of the proximal segment with a cutting balloon atherectomy w ith implantation of 3 x 18 Biotronik Orsiro drug-eluting stent and d irect stenting of the distal 90% lesion with a 2.5 x 12 Courtland d rug-eluting stent. i ncreased coreg to [...] preference to autopap since he had prior CAD/AZ Patrick Mascorro MD Telehealth:stable on BP meds [...] valvular abnormalities. Stress test from 08/17/22 T otal Exercise Duration: 10:01 A ctivity Status: Active [...] to support blood sugars and contact dibetes chung Mascorro MD Cardiology: P TCA stenting with a cutting balloon atherectomy of the LAD utilizing t he placement of a 3 mm x 38 mm Court[place] drug-eluting stent. 5 . Intravascular ultrasound of [...] of a 3 mm x 38 mm Court[place] drug-eluting stent. 5 . Intravascular ultrasound of the ramus intermedius followed by PTCA s tenting of the proximal segment with a cutting balloon atherectomy w ith implantation of 3 x 18 Biotronik Orsiro drug-eluting stent and d irect stenting of the distal 90% lesion with a 2.5 x 12 Courtland d rug-eluting stent. i ncreased coreg to [...] of a 3 mm x 38 mm Court[place] drug-eluting stent. Intravascular ultrasound of the ramus [...] 90% lesion with a 2.5 x 12 Courtland d rug-eluting stent. On DApt H is [...]
--- OUTSIDE RECORDS SUMMARY | 2024-08-04 10:24 | XMS_ITS | Encounter Summary ---
Author Organization [facility] Address [address] [place] [address] Care Team Providers Care Mcat Instructor Name Role Phone Liss Randle EVP STRATEGY Primary Care Provider + Encounter Details Date Type Department Care Team (Late st Contact Info) Description 04/17/2024 Vitriflex Message Enc [facility] Medical Group Family and Sports Medicine - [place] [address] [place] [address] [place], [facility] Provider lab results Social History Tobacco Use [...] Total Score: 1 04/11/19 25 9:38 AM HEALTHCARE SPECIALIST documented as of this encounter Care Teams Mcat Instructor Relationship Specialty Start Date End Date Liss Randle, EVP STRATEGY [address] [place] [address] PCP - General Nurse Practitioner Family 05/13/18 documented as of this encounter
--- NOTE | 2024-08-04 10:29 | ED.CHESTPAIN ---
HPI - Chest Pain General Chief Complaint: Chest Pain Stated Complaint: chest pain Time Seen by Provider: 08/04/24 09:08 Source: patient Mode of arrival: ambulatory Limitations: no limitations History of Present Illness HPI narrative: This is a 43 year old male that presents to the ER for chest pain. Reports he was arguing with a co-worker, he started to get worked up. He started to feel sharp left sided chest pain and discomfort in his arm. He took his Nitro. Reports the pain lasted about 2 hours. He is currently pain free. He has history of cardiac stents and sees a regulatory coordinator in [place]. Reports he is due for a stress test in the next couple of months. Denies shortness of breath, nausea, vomiting. Related Data Home Medications ?Medication ?Instructions ?Recorded ?Confirmed ?Last Taken ?Type atorvastatin 40 mg tablet 40 mg PO DAILY 08/04/24 08/04/24 08/04/24 History carvedilol 3.125 mg tablet 3.125 mg PO DAILY 08/04/24 08/04/24 08/04/24 History clopidogrel 75 mg tablet 75 mg PO DAILY 08/04/24 08/04/24 08/04/24 History empagliflozin 25 mg-metformin ER 1 tablet PO DAILY 08/04/24 08/04/24 08/04/24 History 1,000 mg tablet,extended release 24hr (Synjardy XR) fluoxetine 20 mg capsule 20 mg PO .DA 08/04/24 08/04/24 08/04/24 History isosorbide mononitrate 30 mg 30 mg PO DAILY 08/04/24 08/04/24 08/04/24 History tablet,extended release 24 hr nitroglycerin 0.4 mg sublingual 0.4 mg sublingual Q5M PRN chest 08/04/24 08/04/24 08/04/24 History tablet pain tirzepatide 15 mg/0.5 mL 15 mg subcut WEEKLY 08/04/24 08/04/24 07/28/24 History subcutaneous pen injector (Mounjaro) Allergies Allergy/AdvReac Type Severity Reaction Status Date / Time No Known Allergies Allergy Verified 08/04/24 08:58 Review of Systems Review of Systems: CONSTITUTIONAL: Denies fever CARDIOVASCULAR: Reports chest pain. Denies palpitations, or edema. RESPIRATORY: Denies dyspnea. GASTROINTESTINAL: Denies abdominal pain, nausea, vomiting All systems reviewed & are unremarkable except as noted in HPI and below PMFSH Past Medical History Medical History CAD (coronary artery disease) Diabetes Dyslipidemia Myocardial infarct, old Exam Narrative: GENERAL: Well-appearing, well-nourished, and in no acute distress. HEAD: Normocephalic, atraumatic. EYES: EOMI. CHEST: Clear to auscultation. No respiratory distress. No wheezes rales or rhonchi HEART: Regular rate and rhythm. No murmur heard. Normal peripheral pulses. EXTREMITIES: Normal range of motion. No edema. SKIN: Warm, dry, no rash. NEURO: No focal deficits. Alert and oriented x3. PSYCH: Normal mood and affect Course Course Emergency Course: patient updated on his workup and recommendation for admission. He would like to be discharged with close follow up with his regulatory coordinator Vital Signs Vital signs: Vital Signs Temperature 98.0 F 08/04/24 08:55 Pulse Rate 93 08/04/24 08:55 Respiratory Rate 16 08/04/24 08:55 Blood Pressure 132/94 H 08/04/24 08:55 Pulse Oximetry 100 08/04/24 08:55 Oxygen Delivery Room Air 08/04/24 08:55 Temperature 98.0 F 08/04/24 08:55 Pulse Rate 104 H 08/04/24 10:32 Respiratory Rate 17 08/04/24 10:32 Blood Pressure 118/79 08/04/24 10:32 Pulse Oximetry 98 08/04/24 10:32 Oxygen Delivery Room Air 08/04/24 09:02 MDM - Chest Pain MDM Narrative Medical decision making narrative: Patient presents to the ER for an episode of chest pain today. Does have known history of CAD. His regulatory coordinator is at [place]. His vitals are stable. Cbc and metabolic panel without concerning findings. EKG without acute ST changes. His baseline and 3 hour troponin are negative. Chest x-ray without acute cardiopulmonary abnormality. Patient was updated on his workup and recommendation for admission for observation due to his history. He is currently pain free. Would like to be discharged with close follow-up with his regulatory coordinator Differential Diagnosis Differential diagnosis: Likely stable angina, unstable angina pectoris, atypical chest pain, st elevation myocardial infarction, costochondritis and other (NSTEMI) Lab Data Attestation: I reviewed the patient's lab results. 08/04/24 09:07 08/04/24 09:07 Labs: Lab Results 08/04/24 08/04/24 08/04/24 Range/Units 09:02 09:07 11:39 WBC 8.0 (4.5-10.0) K/mm3 RBC 5.37 (4.6-6.20) M/mm3 Hgb 16.5 (14.0-18.0) g/dL Hct 47.9 (42.0-52.0) % MCV 89.2 (80-100) fl MCH 30.7 (26-34) pg MCHC 34.4 (32-36) g/dl RDW 12.7 (11.5-14.5) % Plt Count 197 (150-375) k/mm3 MPV 12.0 H (7.4-10.4) fl Immature Gran % (Auto) 0.4 (0-0.5) % Neut % (Auto) 70.9 (45.5-73.1) % Lymph % (Auto) 19.8 (18.3-44.2) % Cochran % (Auto) 7.4 (2.6-8.5) % Eos % (Auto) 0.9 (0-4.4) % Baso % (Auto) 0.6 (0.2-1.2) % Lymph # (Auto) 1.58 (0.9-3.2) K/mm3 Cochran # (Auto) 0.6 (0.1-0.6) K/mm3 Eos # (Auto) 0.1 (0-0.3) K/mm3 Baso # (Auto) 0.1 (0.0-0.1) K/mm3 Abs Immat Gran (auto) 0.03 (0.00-0.031) K/mm3 Absolute Neuts (auto) 5.7 (1.3-6.7) K/mm3 Absolute Nucleated RBC 0.000 (0.0-0.012) K/mm3 Nucleated RBC % 0.0 (0.0-0.2) % PT 13.7 (11.1-14.7) Seconds INR 1.0 APTT 26.7 (22.3-36.8) Seconds Sodium 137 (137-145) mmol/L Potassium 4.2 (3.4-5.0) mmol/L Chloride 104 (98-107) mmol/L Carbon Dioxide 22 (22-30) mmol/L Anion Gap 11 (4-12) mmol/L BUN 15 D (9-20) mg/dL Creatinine 0.70 (0.7-1.3) mg/dL Estim Creat Clear Calc 150 ml/min Estimated GFR > 60 (59 - ) Glucose 262 H (65-110) mg/dL POC Capillary Glucose 269 H (65-105) mg/dl Calcium 9.2 (8.4-10.2) mg/dL Total Bilirubin 0.5 (0.2-1.3) mg/dL AST 26 (17-59) U/L ALT 25 (6-50) U/L Alkaline Phosphatase 64 (38-126) U/L Troponin I < 0.012 < 0.012 (0.000-0.034) ng/mL Total Protein 8.0 (6.3-8.2) g/dL Albumin 4.7 (3.5-5.1) g/dL Lipase 126 (23-300) U/L 05/05/25 Range/Units 11:47 WBC (4.5-10.0) K/mm3 RBC (4.6-6.20) M/mm3 Hgb (14.0-18.0) g/dL Hct (42.0-52.0) % MCV (80-100) fl MCH (26-34) pg MCHC (32-36) g/dl RDW (11.5-14.5) % Plt Count (150-375) k/mm3 MPV (7.4-10.4) fl Immature Gran % (Auto) (0-0.5) % Neut % (Auto) (45.5-73.1) % Lymph % (Auto) (18.3-44.2) % Cochran % (Auto) (2.6-8.5) % Eos % (Auto) (0-4.4) % Baso % (Auto) (0.2-1.2) % Lymph # (Auto) (0.9-3.2) K/mm3 Cochran # (Auto) (0.1-0.6) K/mm3 Eos # (Auto) (0-0.3) K/mm3 Baso # (Auto) (0.0-0.1) K/mm3 Abs Immat Gran (auto) (0.00-0.031) K/mm3 Absolute Neuts (auto) (1.3-6.7) K/mm3 Absolute Nucleated RBC (0.0-0.012) K/mm3 Nucleated RBC % (0.0-0.2) % PT (11.1-14.7) Seconds INR APTT (22.3-36.8) Seconds Sodium (137-145) mmol/L Potassium (3.4-5.0) mmol/L Chloride (98-107) mmol/L Carbon Dioxide (22-30) mmol/L Anion Gap (4-12) mmol/L BUN (9-20) mg/dL Creatinine (0.7-1.3) mg/dL Estim Creat Clear Calc ml/min Estimated GFR (59 - ) Glucose (65-110) mg/dL POC Capillary Glucose 181 H (65-105) mg/dl Calcium (8.4-10.2) mg/dL Total Bilirubin (0.2-1.3) mg/dL AST (17-59) U/L ALT (6-50) U/L Alkaline Phosphatase (38-126) U/L Troponin I (0.000-0.034) ng/mL Total Protein (6.3-8.2) g/dL Albumin (3.5-5.1) g/dL Lipase (23-300) U/L Imaging Data Radiologist's impression: ITS Impressions Chest X-Ray 08/04/24 09:39 Impression: Normal chest. ECG Data EKG #1: ECG completion date: 08/04/24 EKG Interpretation: normal rate, sinus rhythm, no ST changes and normal QT Critical Care Time Critical Care Time Critical Care Time: No Discharge Plan Discharge Clinical Impression: Chest pain Qualifiers: Chest pain type: unspecified Qualified Code(s): R07.9 - Chest pain, unspecified Patient Disposition: Home Condition: Stable Instructions: Chest Pain (ED) Additional Instructions: Return to the Emergency Department if you experience chest pain, shortness of breath, or any other symptoms that are concerning to you Take your home medications as prescribed Follow up with your regulatory coordinator Patient Language: Dutch Prescriptions: No Action atorvastatin 40 mg tablet 40 mg PO DAILY carvedilol 3.125 mg tablet 3.125 mg PO DAILY clopidogrel 75 mg tablet 75 mg PO DAILY Synjardy XR 25-1,000 mg tablet, IR - ER, biphasic 24hr 1 tablet PO DAILY fluoxetine 20 mg capsule 20 mg PO .DA isosorbide mononitrate 30 mg tablet extended release 24 hr 30 mg PO DAILY nitroglycerin 0.4 mg tablet, sublingual 0.4 mg sublingual Q5M PRN (Reason: chest pain) Mounjaro 15 mg/0.5 mL pen injector 15 mg SUBCUT WEEKLY Follow-up/Referrals: Jer,Liss Conte NP [Primary Care Provider] - Stand Alone Forms: Work/School Release IP Quality HEART score for chest pain patients History: moderately suspicious ECG: normal Age: < or = to 45 years Risk factors: > or = to 3 risk factors of atherosclerotic disease Troponin: < or = to 1x normal limit Heart score: 3
--- NOTE | 2024-08-04 11:42 | ECG_ITS ---
Test Date: 2024-08-04 11:45:42 Measurements Intervals Alfred Rate: 84 P: 53 TN: 182 QRS: 1 QRSD: 89 T: 49 QT: 347 QTc: 412 Interpretive Statements SINUS RHYTHM LOW-VOLTAGE NORMAL ELECTROCARDIOGRAM Compared to ECG 08/04/2024 08:59:50 No significant changes Electronically Signed On 08-04-2024 15:45:39 CDT by Conor Barbour M.D.
[2024-08-04 11:51] LABS: Glucose Point of Care 181 mg/dl (65-105)
[2024-08-04 12:07] LABS: Troponin I < 0.012 ng/mL (0.000-0.034)
== END 2024-08-04 13:41 | disposition home or self-care (01) ==
PROVIDERS: Emergency Medicine; Emergency Provider Physician Assistant; PCP Nurse Practitioner Family
DX: R07.9 Chest pain, unspecified (principal); I25.10 Atherosclerotic heart disease of native coronary artery without angina pectoris; E11.9 Type 2 diabetes mellitus without complications; E78.49 Other hyperlipidemia; I25.2 Old myocardial infarction
CPT/HCPCS: 36415; 71046; 80053; 82948; 83690; 84484; 85025; 85610; 85730; 93005; 99284; A9270